=== PATIENT | female | born 1945 | race Hispanic/Latino ===

== ENCOUNTER 2019-09-25 15:06 | Emergency (ER) | payer MEDICARE ==
[~2019-09-25] VITALS: Ht 149.9 cm; Wt 59.9 kg
--- NOTE | 2019-09-25 15:36 | NUR ---
PATIENT TO ROOM 11
[2019-09-25] MEDS ORDERED: METHYLPREDNISOLONE SOD SUCC 125 MG/2ML VIAL IV STA (15:39)
[2019-09-25] MEDS ORDERED: DEXAMETHASONE SOD PHOS 10 MG/1 ML VIAL IV NR (15:45)
[2019-09-25] MEDS ORDERED: SODIUM CHLORIDE 0.9% 500ML 500 ML IV ONE (15:45)
[2019-09-25] MEDS ORDERED: DIPHENHYDRAMINE HCL INJ 50 MG/ML VIAL IV NR (15:45)
[2019-09-25] MEDS ORDERED: FAMOTIDINE 20 MG/2 ML VIAL IV NR (16:00)
--- NOTE | 2019-09-25 16:56 | NUR ---
RED RASH REMAINS, WELTS HAVE SUBSIDED.
== END 2019-09-25 16:56 | disposition home or self-care (01) ==
LOC: ER 15:06
DX: L50.9 Urticaria, unspecified (principal)
CPT/HCPCS: 99283; J1100; J1200; J2930; J7040

== ENCOUNTER 2020-04-21 13:27 | Emergency (ER) | payer MEDICARE ==
[~2020-04-21] VITALS: Ht 149.9 cm; Wt 59.9 kg
[2020-04-21] MEDS ORDERED: SODIUM CHLORIDE 0.9% 1000ML 1,000 ML IV STA (13:38)
[2020-04-21] MEDS ORDERED: MORPHINE SULFATE INJ 4 MG/ML INJ 1ML IV STA (13:38)
[2020-04-21] MEDS ORDERED: ONDANSETRON HCL INJ 2MG/ML 2ML 2 MG/ML VIAL IV STA (13:38)
--- NOTE | 2020-04-21 13:38 | Emergency Department Note ---
History of Present Illnes History of Present Illness Chief Complaint: Abdominal Complaints History of Present Illness This is a 74 year old female presents to the ED for acute onset of RUQ pain since this AM. Denies f/c/n/v. Seen by firer tunnel kiln this AM and sent to the ED for evaluation . Historian: Patient Arrival Mode: Car Past Medical/Family History Physician Review I have reviewed the patient's past medical and family history. Any updates have been documented here. Past Medical History Recent Fever: No Clinical Suspicion of Infectio: No New/Unexplained Change in Ment: No Past Medical History: Hypertension, Anxiety, Depression, Hyperlipedemia Other Medical History: RHEUMATORY ARTHRITIS. Past Surgical History: Hysterectomy, Knee Replacement, Lumpectomy Physical Exam Related Data Allergies: Coded Allergies: Ciprofloxacin (Verified Allergy, Severe, 02/26/11) Triage Vital Signs Vital Signs Date Time Temp Pulse Resp B/P (MAP) Pulse Ox O2 Delivery O2 Flow Rate FiO2 04/21/20 13:30 97.8 73 16 150/72 98 Physical Exam CONSTITUTIONAL HENT EYES NECK PULMONARY CARDIOVASCULAR GASTROINTESTINAL GENITOURINARY SKIN MUSCULOSKELETAL NEUROLOGICAL PSYCHOLOGICAL Results Laboratory Lab results reviewed: Yes Laboratory comments Laboratory Tests Test 04/21/20 13:40 White Blood Count 4.82 x10e3/uL (4.8-10.8) Red Blood Count 3.86 x10e6/uL (3.6-5.1) Hemoglobin 11.8 g/dL (12.0-16.0) Hematocrit 37.7 % (34.2-44.1) Mean Corpuscular Volume 97.7 fL (81-99) Mean Corpuscular Hemoglobin 30.6 pg (28-32) Mean Corpuscular Hemoglobin Concent 31.3 g/dL (31-35) Red Cell Distribution Width 14.3 % (11.7-14.4) Platelet Count 251 x10e3/uL (140-360) Neutrophils (%) (Auto) 54.0 % (38.7-80.0) Lymphocytes (%) (Auto) 30.9 % (18.0-39.1) Monocytes (%) (Auto) 12.0 % (4.4-11.3) Eosinophils (%) (Auto) 2.3 % (0.0-6.0) Basophils (%) (Auto) 0.6 % (0.0-1.0) Neutrophils # (Auto) 2.6 (2.1-6.9) Lymphocytes # (Auto) 1.5 (1.0-3.2) Monocytes # (Auto) 0.6 (0.2-0.8) Eosinophils # (Auto) 0.1 (0.0-0.4) Basophils # (Auto) 0.0 (0.0-0.1) Absolute Immature Granulocyte (auto 0.01 x10e3/uL (0-0.1) Urine Color Yellow (YELLOW) Urine Clarity Sl cloudy (CLEAR) Urine pH 7 (5 - 7) Urine Specific Banner 1.020 (1.010-1.025) Urine Protein Negative (NEGATIVE) Urine Glucose (UA) Negative (NEGATIVE) Urine Ketones Negative (NEGATIVE) Urine Blood Negative (NEGATIVE) Urine Nitrite Positive (NEGATIVE) Urine Bilirubin Negative (NEGATIVE) Urine Urobilinogen 0.2 mg/dL (0.2 - 1) Urine Leukocyte Esterase Moderate (NEGATIVE) Urine RBC None /HPF (0-5) Urine WBC 11-20 /HPF (0-5) Urine Epithelial Cells Few /LPF (NONE) Urine Renal Epithelial Cells Rare (NONE) Urine Amorphous Sediment Few (FEW) Urine Bacteria Many /HPF (NONE) Sodium Level 140 mmol/L (136-145) Potassium Level 4.1 mmol/L (3.5-5.1) Chloride Level 106 mmol/L (98-107) Carbon Dioxide Level 23 mmol/L (22-29) Anion Gap 15.1 mmol/L (8-16) Blood Urea Nitrogen 11 mg/dL (7-26) Creatinine 0.98 mg/dL (0.57-1.11) Estimat Glomerular Filtration Rate 55 ML/MIN (60-) BUN/Creatinine Ratio 11 (6-25) Glucose Level 87 mg/dL (74-118) Calcium Level 9.7 mg/dL (8.4-10.2) Total Bilirubin 0.4 mg/dL (0.2-1.2) Aspartate Amino Transf (AST/SGOT) 22 IU/L (5-34) Alanine Aminotransferase (ALT/SGPT) 9 IU/L (0-55) Alkaline Phosphatase 59 IU/L (40-150) Creatine Kinase 56 IU/L (29-168) Creatine Kinase MB 1.20 ng/mL (0-5.0) Troponin I 0.034 ng/mL (0-0.300) B-Type Natriuretic Peptide 16.1 pg/mL (0-100) Total Protein 7.6 g/dL (6.5-8.1) Albumin 3.8 g/dL (3.5-5.0) Globulin 3.8 g/dL (2.3-3.5) Albumin/Globulin Ratio 1.0 (0.8-2.0) Lipase 14 U/L (8-78) Imaging Imaging results reviewed: Yes Impressions [place] [id number] Patient Name: LASHA GUERRERO MR #: [id number] : 1945 Age/Sex: 74/F Req #: [id number] Adm Physician: Ordered by: ADAMA CHAUDHRY DO Report #: [id number] Location: ER Room/Bed: Procedure: [id number] CT/CT ABDOMEN/PELVIS W Exam Date: 04/21/20 Exam Time: 1450 REPORT STATUS: Signed EXAM: CT Abdomen and Pelvis WITH intravenous contrast INDICATION: Abdominal pain COMPARISON: None. TECHNIQUE: Abdomen and pelvis were scanned utilizing a multidetector helical scanner from the lung base to the pubic symphysis after administration of IV contrast. Coronal and sagittal reformations were obtained. Routine protocol was performed. Scan was performed during portal venous phase. IV CONTRAST: 100mL of Isovue 370 ORAL CONTRAST: Water RADIATION DOSE: Total DLP: 338 mGy*cm Dose modulation, iterative reconstruction, and/or weight based adjustment of the mA/kV was utilized to reduce the radiation dose to as low as reasonably achievable. FINDINGS: LOWER THORAX: Bibasilar dependent subsegmental atelectasis. HEPATOBILIARY: Diffuse hepatic steatosis. No focal liver lesion. No biliary ductal dilation. Status post cholecystectomy. SPLEEN: No splenomegaly. PANCREAS: No focal masses or ductal dilatation. ADRENALS: No adrenal nodules. KIDNEYS/URETERS: No hydronephrosis or renal calculi. Right lower pole 1 cm renal cyst. PELVIC ORGANS/BLADDER: Unremarkable. PERITONEUM / RETROPERITONEUM: No free air or fluid. LYMPH NODES: No lymphadenopathy. VESSELS: Scattered athetotic calcifications of the nonaneurysmal abdominal aorta and major branches. GI TRACT: Diverticulosis without CT evidence of diverticulitis. No abnormal bowel thickening. No bowel obstruction. Normal appendix. BONES AND SOFT TISSUES: No acute osseous injury. No suspicious lytic or blastic lesions. IMPRESSION: No acute findings in the abdomen or pelvis. Diffuse hepatic steatosis. Diverticulosis without CT evidence of diverticulitis. Signed by: Rigo Sloan MD on 04/21/2020 3:53 PM Dictated By: RIGO SLOAN MD 52 Transcribed By: STEPHNE on 04/21/201552 COPY TO: ADAMA CHAUDHRY DO~ Procedures 12 Lead ECG Interpretation ECG Interpretation : ECG: ECG 1 Custom Motorcycle Painter: Interpreted by ED physician Date: Apr 21, 2020 Time: 13:37 Prior ECG tracings: reviewed Rhythm: sinus rhythm Rate: normal BPM: 70 QRS axis: normal ST segments normal: Yes T waves normal: No T waves flattening: V1, V2, V3, V4, V5 Clinical Impression: non-specific ECG Assessment & Plan Medical Decision Making MDM 74 yof with RUQ Pain. [address] and labs ordered to rule out appendicitis, biliary pathology and perforation. Labs and CT reviewed with patient, plan to discharge to home Assessment & Plan Final Impression: (1) Right sided abdominal pain Depart Disposition: HOME, SELF-CARE Last Vital Signs Date Time Temp Pulse Resp B/P (MAP) Pulse Ox O2 Delivery O2 Flow Rate FiO2 04/21/20 13:30 97.8 73 16 150/72 98 Medications in the ED Sodium Chloride 1,000 ml @ 0 mls/hr Q0M STAT IV Last administered on 04/21/20at 13:59; Admin Dose 1,000 MLS/HR; Start 04/21/20 at 13:38; Stop 04/21/20 at 13:40; Status DC Morphine Sulfate 4 mg ONCE STAT IV Last administered on 6/12/20at 13:59; Admin Dose 4 MG; Start 04/21/20 at 13:38; Stop 04/21/20 at 13:42; Status DC Ondansetron HCl 4 mg ONCE STAT IV Last administered on 04/21/20at 14:00; Admin Dose 4 MG; Start 04/21/20 at 13:38; Stop 04/21/20 at 13:42; Status DC ADAMA CHAUDHRY DO Apr 21, 2020 13:38
--- OUTSIDE RECORDS SUMMARY | 2020-04-21 13:41 | XMS REPORT | Continuity of Care Document ---
Author Author PutneyLASHA Putney Address Unknown Phone Unavailable Care Team Providers Care Nuclear Waste Process Operator Name Role Phone [facility] Information Exchange Unavailable Un available Problems Problem Status Onset Date Classification Date Reported Comments Source Age related osteoporosis Active Problem 04/18/2020 King Jimenez 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 Active Problem 04/18/2020 King Jimenez Vitamin D deficiency, unspecified Active Problem 07/2020 King Jimenez Other dampener operator (current) drug therapy Active Problem 07/2020 King Jimenez Other rheumatoid arthritis with rheumato id factor of multiple sites Active Prob kade 04/18/2020 King Jimenez Other abnormality of red blood cells Active Diagnosis 0 05/21/2019 King Jimenez Depression Active Problem 04/18/2020 King Jimenez Tuberculosis screening Active Diagnosis 03/28/2020 King Jimenez Encounter for testing for latent tuberculosis infectio n Active Diagnosis 03/28/2020 King Jimenez Screening for tuberculosis Act sumi Diagnosis 0 03/25/2020 King Jimenez Encounter for screening for other infect ious and parasitic diseases Active Diag nosis 03/25/2020 King Jimenez Encounter for screening for other viral diseases Active Diagnosis 03/25/2020 King Jimenez Encounter for screening for other bacterial diseases Active Diagnosis 03/25/2020 King Jimenez Medications Medication Details Route Status Patient Instructions Ordering Provider Order Date Source Enbrel Mini 1 ml Subcutaneous Active 50 MG/ML Subcutaneous o nce a week Jimenez 03/22/2020 King Jimenez Prednisone Taper 3 tablets for 5 days, 2 tablets for 5 days and then 1 tablet for 5 days orally Active 5mg orally as directed Richardson 03/21/2020 King Jimenez Sulfasalazine 2 tabs Orally Active 500 MG Orally BID Richardson 12/22/2019 King Jimenez Prednisone Taper 3 tablets for 5 days, 2 tablets for 5 days and then 1 tablet for 5 days orally Active 5mg orally as directed Richardson 12/22/2019 King Jimenez Boniva 1 tablet Orally Active 150 MG Orally Richardson 09/21/2019 King Jimenez Tylenol#3 1 tablet Orally Active 300-30 MG Orally BID [facility] 09/21/2019 King Jimenez Prednisone Taper 3 tablets for 5 days, 2 tablets for 5 days and then 1 tablet for 5 days NA Active 5mg Y ousaf 05/18/2019 King Jimenez Prolia as directed Subcutaneous Active 60 MG/ML Subcutaneous q 6 months [place] 03/31/2019 King Jimenez Prolia as directed Subcutaneous Active 60 MG/ML Subcutaneous q 6 months [place] 09/07/2018 King Jimenez Alendronate Sodium 1 tablet Orally Active 70 MG Orally once a week [place] 09/07/2018 King Jimenez Prolia as directed Subcutaneous Active 60 MG/ML Subcutaneous q 6 months [place] 02/03/2018 King Jimenez Folic Acid 1 tablet Orally Active 4 MG Orally Once a day [place] 02/03/2018 King Jimenez Omeprazole 1 capsule Orally Active 40 MG Orally Once a day [facility] Lino Jimenez Citalopram Hydrobromide 1 tabl et Orally Active 20 MG Orally Once a day [facility] King Jimenez Sulfasalazine 1 tablet Orally Active 500 MG Orally bid [facility] Lino Jimenez Meloxicam 1 tablet Orally Active 7.5 MG Orally Once a da y [facility] Lino Jimenez Vitamin D not defined Orally Active 2000 UNIT Orally once a day [facility] King Jimenez Alendronate Sodium 1 tablet Orally Active 70 MG Orally [place] King Jimenez Anoro Ellipta 1 puff Inhalation Active 62.5-25 MCG/INH Inhalat ion Once a day [place] King Jimenez Fenofibrate 1 tablet with a me al Orally Active 54 MG Orally Once a day [facility] King Jimenez Lisinopril 1 tablet Orally Active 20 MG Orally Once a day [facility] Lino Jimenez Citalopram Hydrobromide 1 tabl et Orally Active 20 mg Orally Once a day [facility] King Jimenez Vitamin B12 1 tablet Orally Active 1000 MCG Orally Once a day [facility] King Jimenez Omeprazole 1 capsule Orally Active 40 MG Orally Once a day PRN Richardsonpetra Jimenez Allergies, Adverse Reactions, Alerts Substance Category Reaction Severity Reaction type Status Date Reported Comments Source Naproxen Adverse Reaction stomach upset Adverse Reaction Active 03/21/2020 King Jimenez MTX Adverse Reaction raised lft Adverse Reaction Active 03/21/2020 King Jimenez cipro Adverse Reaction rash Adverse Reaction Active 03/21/2020 King Jimenez hcq Adverse Reaction eye prob Adverse Reaction Active 03/21/2020 King Jimenez Immunizations No Data Provided for This Section Results No Data Provided for This Section Pathology Reports No Data Provided for This Section Diagnostic Reports No Data Provided for This Section Consultation Notes No Data Provided for This Section Discharge Summaries No Data Provided for This Section History and Physicals No Data Provided for This Section Vital Signs Vital Sign Value Date Comments Source Weight 131.9 12/22/2019 King Jimenez Height 58 0 12/22/2019 King Jimenez Temperature Oral (F) 97.9 F 12/22/2019 King Jimenez Heart Rate 66 12/22/2019 King Jimenez Diastolic (mm Hg) 80 12/22/2019 King Jimenez Systolic (mm Hg) 130 12/22/2019 King Jimenez Weight 132.7 09/21/2019 King Jimenez Height 58 1 11/21/2018 King Jimenez Temperature Oral (F) 97.1 F 09/21/2019 King Jimenez Heart Rate 68 09/21/2019 King Jimenez Diastolic (mm Hg) 70 09/21/2019 King Jimenez Systolic (mm Hg) 140 09/21/2019 King Jimenez Weight 134.5 05/18/2019 King Jimenez Height 58 0 05/18/2019 King Jimenez Temperature Oral (F) 98.9 F 05/18/2019 King Jimenez Heart Rate 72 05/18/2019 King Jimenez Diastolic (mm Hg) 68 05/18/2019 King Jimenez Systolic (mm Hg) 108 05/18/2019 King Jimenez Weight 127.2 09/07/2018 King Jimenez Height 58 1 King Jimenez Temperature Oral (F) 97.2 F 09/07/2018 King Jimenez Heart Rate 70 09/07/2018 King Jimenez Diastolic (mm Hg) 72 09/07/2018 King Jimenez Systolic (mm Hg) 106 09/07/2018 King Jimenez Weight 134 02/03/2018 King Jimenez Height 58 0 02/03/2018 King Jimenez Temperature Oral (F) 96.7 F 02/03/2018 King Jimenez Heart Rate 68 02/03/2018 Kingsavita Jimenez Diastolic (mm Hg) 70 02/03/2018 King Jimenez Systolic (mm Hg) 122 02/03/2018 King Jimenez Encounters No Data Provided for This Section Procedures No Data Provided for This Section Assessment and Plan No Data Provided for This Section Plan of Care No Data Provided for This Section Social History No Data Provided for This Section Family History No Data Provided for This Section Advance Directives No Data Provided for This Section Functional Status No Data Provided for This Section
--- OUTSIDE RECORDS SUMMARY | 2020-04-21 13:42 | XMS REPORT ---
Author LASHA Horvath Organization [employer] Address Unknown Phone Unavailable Care Team Providers Care Metal Dresser Name Role Phone Roscoe Jimenez CP Unavailable Allergies No Known Allergies Problems Problem Type Condition Code Onset Dates Condition Statu s Problem Vitamin D deficiency, unspecified E55.9 Active Problem Age related osteoporosis M81.0 Act sumi Problem Depression F32.9 Active Problem Other rheumatoid arthritis with rheumato id factor of multiple sites M05.89 Active Problem Rheumatoid arthritis with rh eumatoid factor of multiple sites without organ or systems involvement M05.79 Active Problem Other snf (current) drug therapy Z79.899 Active Medications No Known Medications Results No Known Results Summary Purpose [employer] Submission
--- OUTSIDE RECORDS SUMMARY | 2020-04-21 13:42 | XMS REPORT ---
Author Author LASHA Jimenez Organization [employer] Address Unknown Phone Unavailable Care Team Providers Care M1 Armor Crewman Name Role Phone Roscoe Jimenez CP Unavailable Allergies No Known Allergies Problems Problem Type Condition Code Onset Dates Condition Statu s Problem Age related osteoporosis M81.0 Act sumi Problem Rheumatoid arthritis with rh eumatoid factor of multiple sites without organ or systems involvement M05.79 Active Problem Vitamin D deficiency, unspecified E55.9 Active Assessment Age related osteoporosis M81.0 Act sumi Problem Other termite control representative (current) drug therapy Z79.899 Active Problem Other rheumatoid arthritis with rheumato id factor of multiple sites M05.89 Active Medications Medication Code System Code Instructions Start Date End Date Status Dosage Prolia [facility] 85801816908 60 MG/ML Subcutaneous q 6 months Sep 07 8 Active as directed Results No Known Results Summary Purpose [employer] Submission
--- OUTSIDE RECORDS SUMMARY | 2020-04-21 13:42 | XMS REPORT ---
Author Author LASHA Jimenez Organization [employer] Address Unknown Phone Unavailable Care Team Providers Care Ice Grinder Name Role Phone Roscoe Jimenez CP Unavailable Allergies No Known Allergies Problems Problem Type Condition Code Onset Dates Condition Statu s Assessment Tuberculosis screening Z11.1 Activ e Assessment Encounter for testing for latent tuberculosis infectio n Z11.7 Active Problem Vitamin D deficiency, unspecified E55.9 Active Problem Age related osteoporosis M81.0 Act sumi Problem Depression F32.9 Active Problem Other rheumatoid arthritis with rheumato id factor of multiple sites M05.89 Active Problem Rheumatoid arthritis with rh eumatoid factor of multiple sites without organ or systems involvement M05.79 Active Problem Other retirement (current) drug therapy Z79.899 Active Medications No Known Medications Results No Known Results Summary Purpose [employer] Submission
--- OUTSIDE RECORDS SUMMARY | 2020-04-21 13:42 | XMS REPORT ---
Author RealLASHA [facility] [employer] Address Unknown Phone Unavailable Care Team Providers Care Statistical Reporting Analyst Name Role Phone Real Tammie Unavailable Allergies, Adverse Reactions, Alerts Substance Reaction Event Type Naproxen stomach upset Drug Allergy MTX raised lft Non Drug Allergy hcq eye prob Non Drug Allergy cipro rash Non Drug Allergy Problems Problem Type Condition Code Onset Dates Condition Statu s Assessment Age related osteoporosis M81.0 Act sumi Assessment Rheumatoid arthritis with rh eumatoid factor of multiple sites without organ or systems involvement M05.79 Active Assessment Other emt intermediate (current) drug therapy Z79.899 Active Assessment Vitamin D deficiency, unspecified E55.9 Active Problem Age related osteoporosis M81.0 Act sumi Problem Rheumatoid arthritis with rh eumatoid factor of multiple sites without organ or systems involvement M05.79 Active Problem Vitamin D deficiency, unspecified E55.9 Active Assessment Other rheumatoid arthritis with rheumato id factor of multiple sites M05.89 Active Problem Other emt intermediate (current) drug therapy Z79.899 Active Problem Other rheumatoid arthritis with rheumato id factor of multiple sites M05.89 Active Medications Medication Code System Code Instructions Start Date End Date Status Dosage Boniva [facility] 00337951184 150 MG Orally Sep 21, 2019 Active 1 tablet Tylenol#3 NDC 0 300-30 MG Orally BID Sep 21, 2019 Dec 20, 2019 Active 1 tablet Omeprazole ND 95643439023 40 MG Orally Once a day A ctive [address] [facility] 99423095939 7.5 MG Orally Once a day A ctive 1 tablet Citalopram Hydrobromide ND 92411305203 20 MG Orally Once a day Active 1 tablet Sulfasalazine ND 41652011062 500 MG Orally bid Acti ve 1 tablet Fenofibrate ND 87655301350 54 MG Orally Once a day Active 1 tablet with a meal Lisinopril ND 80488122844 20 MG Orally Once a day A ctive 1 tablet Vitamin B12 [facility] 60449795044 1000 MCG Orally Once a day Active 1 tablet Vitamin D [facility] 64995295300 2000 UNIT Orally once a day Active not defined Vital Signs Date/Time: Sep 21, 2019 BMI 27.73 Index Weight 132.7 lbs Height 58 in Temperature 97.1 F Cardiac Monitoring Heart Rate 68 /min Blood Pressure Diastolic 70 mm Hg Blood Pressure Systolic 140 mm Hg Results No Known Results Summary Purpose [employer] Submission
--- OUTSIDE RECORDS SUMMARY | 2020-04-21 13:42 | XMS REPORT | Continuity of Care Document ---
Author Author [facility] t Organization [facility] Address [address] [place] [address] Phone Unavailable Care Team Providers Care Biomedical Service Engineer Name Role Phone EMELYN MCKEON MD PCP Payers Payer Name Policy Type Policy Number Effective Date Expiration Date Rodney Gardiner (Plan term eff Nov 2012) [id number] [facility] Problems Condition Name Condition Details Condition Category Status Onset Date Resolution Date Last Treatment Date Treating Clinician Comments Source Age related osteoporosis Age related osteoporosis Active Problem 04/18/2020 King Jimenez Problem Active 2020-04-18 02 :45:52 Ganesh Moreau 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 Rheumatoid arthr itis with rheumatoid factor of multiple sites without organ or systems involvement Active Problem 04/18/2020 King Jimenez Problem Active 2020-04-18 02:45:52 Ganesh Moreau Vitamin D deficiency, unspecified Vitamin D deficiency, unspecified Active Problem 04/18/2020 King Jimenez Problem Active 2020-04-18 02:45:52 Ganesh Moreau Other penitentiary (current) drug therapy Other intermediate school teacher (current) drug therapy Active Problem 04/18/2020 King Jimenez Problem Ac tive 2020-04-18 02:45:52 Ganesh montanez Other rheumatoid arthritis with rheumatoid factor of m ultiple sites Other rheumatoid arthritis with rheumatoid factor of multiple sites Active Problem 04/18/2020 King Jimenez Problem Active 2020-04-18 02:45:52 Ganesh Moreau 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 Diagnosis 05/21/2019 King Jimenez Diagnosis Acti ve 2019-05-21 02:45:57 Ganesh montanez Depression Depr ession Active Problem 04/18/2020 King Jimenez Problem Active 2020-04-18 02:45:52 Ganesh Moreau Tuberculosis screening Tube rculosis screening Active Diagnosis 03/28/2020 King Jimenez Diagnosis Active 2020-03-28 02:47:09 [facility] Encounter for testing for latent tuberculosis infectio n Encounter for testing for latent tuberculosis infection Active Diagnosis 03/28/2020 King Jimenez Diagnosis Active 2020-03-28 02:47:09 [facility] Encounter for screening for other infectious and toshia itic diseases Encounter for screening for other infectious and parasitic diseases Active Diagnosis 03/25/2020 King Jimenez Diagnosis Active 2020-03-25 02:46:[facility] Encounter for screening for other viral diseases Encounter for screening for other viral diseases Active Diagnosis 03/25/2020 King Jimenez Diagnosis Active 2020-03-25 02:46:27 [facility] Encounter for screening for other bacterial diseases Encounter for screening for other bacterial diseases Active Diagnosis 03/25/2020 King Jimenez Diagnosis Active 2020-03-25 02:46:27 [facility] Allergies, Adverse Reactions, Alerts Allergy Name Allergy Type Status Severity Reaction(s) Onset Date Inacti ve Date Treating Clinician Comments Source Naproxen Naproxen Active stomach upset 2020-03-21 00:00:00 [facility] hcq hcq Active eye prob 2020-03-21 00:00:00 [facility] Ciprofloxacin Allergy to Substance Active Severe 2011-02-26 00:00: 00 [facility] Medications Ordered Medication Name Filled Medication Name Start Date Stop Da te Current Medication? Ordering Clinician Indication Dosage Frequency Signature (SIG) Comments Components Source Vitamin D 2020-03-25 02:46:27 Yes Francis Richardson no t defined [facility] Fenofibrate 2020-03-25 02:46:27 Yes Francis Richardson 1 tablet with a meal [facility] Lisinopril 2020-03-25 02:46:27 Yes Francis Richardson 1 tablet [facility] Citalopram Hydrobromide 2020-03-25 02:46:27 Yes Francis Richardson 1 tablet [facility] Vitamin B12 2020-03-25 02:46:27 Yes Francis Richardson 1 tablet [facility] Omeprazole 2020-03-25 02:46:27 Yes Francis Richardson 1 capsule [facility] Enbrel Mini 2020-03-22 00:00:00 Yes Roscoe Jimenez 1 ml [facility] Prednisone Taper 2020-03-21 00:00:00 Yes Francis Richardson 3 tablets for 5 days, 2 tablets for 5 days and then 1 tablet for 5 days [facility] Omeprazole 2019-12-25 03:46:07 Yes Francis Richardson 1 capsule [facility] Sulfasalazine 2019-12-25 03:46:07 Yes Francis Richardson 1 tablet [facility] Meloxicam 2019-12-25 03:46:07 Yes Francis Richardson 1 tablet [facility] Citalopram Hydrobromide 2019-12-22 03:45:51 Yes Tammie Horn 1 tablet [facility] Sulfasalazine 2019-12-22 00:00:00 Yes Francis Richardson 2 tabs [facility] Prednisone Taper 2019-12-22 00:00:00 Yes Francis Richardson 3 tablets for 5 days, 2 tablets for 5 days and then 1 tablet for 5 days [facility] Boniva 2019-09-21 00:00:00 Yes Francis Richardson 1 tab let [facility] Tylenol#3 2019-09-21 00:00:00 Yes Tammie Horn 1 ta blet [facility] Prednisone Taper 2019-05-18 00:00:00 Yes Wajeeha Kemar 3 tablets for 5 days, 2 tablets for 5 days and then 1 tablet for 5 days [facility] Prolia 2019-03-31 00:00:00 Yes Roscoe Jimenez as d irected [facility] Anoro Ellipta 2018-09-11 02:48:42 Yes Wajeeha Kemar 1 puff [facility] Prolia 2018-09-07 00:00:00 Yes Roscoe Jimenez as d irected [facility] Alendronate Sodium 2018-09-07 00:00:00 Yes Wajeeha Kemar 1 tablet [facility] Alendronate Sodium 2018-02-05 02:47:53 Yes Wajeeha Kemar 1 tablet [facility] Prolia 2018-02-03 00:00:00 Yes Roscoe Jimenez as d irected [facility] Folic Acid 2018-02-03 00:00:00 Yes Wajeeha Kemar 1 tablet [facility] Vital Signs Vital Name Observation Time Observation Value Comments Source Weight 2019-12-22 16:00:00 [facility] Height 2019-12-22 16:00:00 [facility] Temperature Oral (F) 2019-12-22 16:00:00 97.9 F [facility] Heart Rate 2019-12-22 16:00:00 [facility] Diastolic (mm Hg) 2019-12-22 16:00:00 [facility] Systolic (mm Hg) 2019-12-22 16:00:00 [facility] Weight 2019-09-21 17:15:00 [facility] Height 2019-09-21 17:15:00 [facility] Temperature Oral (F) 2019-09-21 17:15:00 97.1 F [facility] Heart Rate 2019-09-21 17:15:00 [facility] Diastolic (mm Hg) 2019-09-21 17:15:00 [facility] Systolic (mm Hg) 2019-09-21 17:15:00 [facility] Weight 2019-05-18 16:00:00 [facility] Height 2019-05-18 16:00:00 [facility] Temperature Oral (F) 2019-05-18 16:00:00 98.9 F [facility] Heart Rate 2019-05-18 16:00:00 [facility] Diastolic (mm Hg) 2019-05-18 16:00:00 [facility] Systolic (mm Hg) 2019-05-18 16:00:00 [facility] Weight 2018-09-07 16:15:00 [facility] Height 2018-09-07 16:15:00 [facility] Temperature Oral (F) 2018-09-07 16:15:00 97.2 F [facility] Heart Rate 2018-09-07 16:15:00 [facility] Diastolic (mm Hg) 2018-09-07 16:15:00 [facility] Systolic (mm Hg) 2018-09-07 16:15:00 [facility] Weight 2018-02-03 13:45:00 [facility] Height 2018-02-03 13:45:00 [facility] Temperature Oral (F) 2018-02-03 13:45:00 96.7 F [facility] Heart Rate 2018-02-03 13:45:00 [facility] Diastolic (mm Hg) 2018-02-03 13:45:00 [facility] Systolic (mm Hg) 2018-02-03 13:45:00 [facility] Procedures This patient has no known procedures. Encounters Start Date/Time End Date/Time Encounter Type Admission Type [facility] Care Department Encounter ID Source 2020-04-13 14:52:00 2020-04-13 14:52:00 Outpatient Roscoe SWEENEY [id number] King Jimenez MD 2020-03-27 15:54:00 2020-03-27 15:54:00 Outpatient Roscoe Jimenez MD [place] [id number] King Jimenez MD 2020-03-22 12:30:00 2020-03-22 12:30:00 Outpatient Roscoe Jimenez MD PA [id number] King Jimenez MD 2020-03-21 10:00:00 2020-03-21 10:00:00 Outpatient Roscoe Jimenez MD PA [id number] King Jimenez MD 2019-12-22 10:00:00 2019-12-22 10:00:00 Outpatient Roscoe Jimenez MD PA [id number] King Jimenez MD 2019-12-06 13:53:00 2019-12-06 13:53:00 Outpatient MD PATEL Holloway MD [place] [id number] King Jimenez MD 2019-09-25 15:06:00 2019-09-25 16:56:00 Departed Emergency Room [facility] [id number] [facility] 2019-09-21 11:15:00 2019-09-21 11:15:00 Outpatient Roscoe Jimenez MD PA [id number] MARY Jimenez MD 2019-05-20 14:27:00 2019-05-20 14:27:00 Outpatient Roscoe SWEENEY [id number] MARY Jimenez MD 2019-05-18 11:00:00 2019-05-18 11:00:00 Outpatient Roscoe Jimenez MD PA [id number] MARY Jimenez MD 2019-04-26 12:55:00 2019-04-26 12:55:00 Outpatient Roscoe Jimenez MD PA [id number] King Jimenez MD 2019-04-01 08:20:00 2019-04-01 08:20:00 Outpatient Roscoe SWEENEY [id number] King Jimenez MD 2019-03-31 13:01:00 2019-03-31 13:01:00 Outpatient Roscoe SWEENEY [id number] King Jimenez MD 2019-03-19 08:28:00 2019-03-19 08:28:00 Outpatient Roscoe SWEENEY [id number] King Jimenez MD 2018-10-14 13:48:00 2018-10-14 13:48:00 Outpatient Roscoe Jimenez MD PA [id number] King Jimenez MD 2018-10-13 16:04:00 2018-10-13 16:04:00 Outpatient Roscoe Jimenez MD PA [id number] King Jimenez MD 2018-10-05 14:54:00 2018-10-05 14:54:00 Outpatient Roscoe SWEENEY [id number] King Jimenez MD 2018-09-07 11:15:00 2018-09-07 11:15:00 Outpatient Roscoe SWEENEY [id number] King Jimenez MD 2018-09-07 10:39:00 2018-09-07 10:39:00 Outpatient Roscoe SWEENEY [id number] King Jimenez MD 2018-08-06 10:43:00 2018-08-06 10:43:00 Outpatient Roscoe SWEENEY [id number] King Jimenez MD 2018-02-05 10:19:00 2018-02-05 10:19:00 Outpatient Roscoe SWEENEY [id number] King Jimenez MD 2018-02-03 10:01:00 2018-02-03 10:01:00 Outpatient Roscoe Jimenez MD [place] [id number] King Jimenez MD 2018-02-03 08:45:00 2018-02-03 08:45:00 Outpatient Roscoe Jimenez MD [place] [id number] King Jimenez MD Results This patient has no known results.
--- OUTSIDE RECORDS SUMMARY | 2020-04-21 13:42 | XMS REPORT ---
Author Author LASHA Jimenez Organization [employer] Address Unknown Phone Unavailable Care Team Providers Care Hr Recruiter Name Role Phone Roscoe Jimenez CP Unavailable Allergies No Known Allergies Problems Problem Type Condition Code Onset Dates Condition Statu s Problem Age related osteoporosis M81.0 Act sumi Problem Rheumatoid arthritis with rh eumatoid factor of multiple sites without organ or systems involvement M05.79 Active Problem Vitamin D deficiency, unspecified E55.9 Active Problem Other snf (current) drug therapy Z79.899 Active Problem Other rheumatoid arthritis with rheumato id factor of multiple sites M05.89 Active Medications No Known Medications Results No Known Results Summary Purpose [employer] Submission
--- OUTSIDE RECORDS SUMMARY | 2020-04-21 13:42 | XMS REPORT ---
Author Author LASHA Jimenez Organization [employer] Address Unknown Phone Unavailable Care Team Providers Care Environmental Planning Engineer Name Role Phone Roscoe Jimenez CP Unavailable Allergies No Known Allergies Problems Problem Type Condition Code Onset Dates Condition Statu s Problem Age related osteoporosis M81.0 Act sumi Problem Rheumatoid arthritis with rh eumatoid factor of multiple sites without organ or systems involvement M05.79 Active Problem Vitamin D deficiency, unspecified E55.9 Active Problem Other m[facility] (current) drug therapy Z79.899 Active Problem Other rheumatoid arthritis with rheumato id factor of multiple sites M05.89 Active Medications No Known Medications Results No Known Results Summary Purpose [employer] Submission
--- OUTSIDE RECORDS SUMMARY | 2020-04-21 13:42 | XMS REPORT ---
Author Author LSAHA Jimenez Organization [employer] Address Unknown Phone Unavailable Care Team Providers Care Yarn Hauler Name Role Phone Roscoe Jimenez CP Unavailable Allergies No Known Allergies Problems Problem Type Condition Code Onset Dates Condition Statu s Problem Age related osteoporosis M81.0 Act sumi Problem Rheumatoid arthritis with rh eumatoid factor of multiple sites without organ or systems involvement M05.79 Active Problem Vitamin D deficiency, unspecified E55.9 Active Problem Other retirement (current) drug therapy Z79.899 Active Problem Other rheumatoid arthritis with rheumato id factor of multiple sites M05.89 Active Medications No Known Medications Results No Known Results Summary Purpose [employer] Submission
--- OUTSIDE RECORDS SUMMARY | 2020-04-21 13:42 | XMS REPORT ---
Author Author LASHA Richardson Organization [employer] Address Unknown Phone Unavailable Care Team Providers Care Cotton Candy Maker Name Role Phone Francis Richardson Unavailable Allergies, Adverse Reactions, Alerts Substance Reaction Event Type Naproxen stomach upset Drug Allergy MTX raised lft Non Drug Allergy hcq eye prob Non Drug Allergy cipro rash Non Drug Allergy Problems Problem Type Condition Code Onset Dates Condition Statu s Assessment Depression F32.9 Active Assessment Other rheumatoid arthritis with rheumato id factor of multiple sites M05.89 Active Assessment Other roasterman (current) drug therapy Z79.899 Active Assessment Vitamin D deficiency, unspecified E55.9 Active Problem Vitamin D deficiency, unspecified E55.9 Active Problem Age related osteoporosis M81.0 Act sumi Problem Depression F32.9 Active Problem Other rheumatoid arthritis with rheumato id factor of multiple sites M05.89 Active Problem Rheumatoid arthritis with rh eumatoid factor of multiple sites without organ or systems involvement M05.79 Active Problem Other roasterman (current) drug therapy Z79.899 Active Medications Medication Code System Code Instructions Start Date End Date Status Dosage Citalopram Hydrobromide ND 04671186798 20 mg Orally Once a day Active 1 tablet Lisinopril ND 39723547270 20 MG Orally Once a day A ctive 1 tablet Meloxicam ND 06822403521 7.5 MG Orally Once a day A ctive 1 tablet Boniva ND 51171963767 150 MG Orally Sep 21, 2019 Active 1 tablet Vitamin D ND 08688362227 2000 UNIT Orally once a day Active not defined Fenofibrate ND 63035396793 54 MG Orally Once a day Active 1 tablet with a meal Vitamin B12 ND 06961583412 1000 MCG Orally Once a day Active 1 tablet Sulfasalazine ND 68228159357 500 MG Orally bid Acti ve 1 tablet Sulfasalazine ND 90873257652 500 MG Orally BID Dec 22, 2019 Active 2 tabs Prednisone Taper ND 06741810255 5mg orally as directed DecJan 06, 2020 Active 3 tablets for 5 days, 2 tabl ets for 5 days and then 1 tablet for 5 days Omeprazole [facility] 55475871227 40 MG Orally Once a day A ctive 1 capsule Vital Signs Date/Time: Dec 22, 2019 BMI 27.56 Index Weight 131.9 lbs Height 58 in Temperature 97.9 F Cardiac Monitoring Heart Rate 66 /min Blood Pressure Diastolic 80 mm Hg Blood Pressure Systolic 130 mm Hg Results No Known Results Summary Purpose [employer] Submission
--- OUTSIDE RECORDS SUMMARY | 2020-04-21 13:42 | XMS REPORT ---
Author Author LASHA Jimenez Organization [employer] Address Unknown Phone Unavailable Care Team Providers Care [place] Police Lieutenant Name Role Phone Roscoe Jimenez CP Unavailable Allergies No Known Allergies Problems Problem Type Condition Code Onset Dates Condition Statu s Problem Age related osteoporosis M81.0 Act sumi Problem Rheumatoid arthritis with rh eumatoid factor of multiple sites without organ or systems involvement M05.79 Active Problem Vitamin D deficiency, unspecified E55.9 Active Problem Other clinical applications manager (current) drug therapy Z79.899 Active Problem Other rheumatoid arthritis with rheumato id factor of multiple sites M05.89 Active Medications Medication Code System Code Instructions Start Date End Date Status Dosage Prolia [facility] 84947456933 60 MG/ML Subcutaneous q 6 months February 03, 018 Active as directed Results No Known Results Summary Purpose [employer] Submission
--- OUTSIDE RECORDS SUMMARY | 2020-04-21 13:42 | XMS REPORT ---
Author LASHA Blevins [facility] [employer] Address Unknown Phone Unavailable Care Team Providers Care Biologics Specialist Name Role Phone Cynthia Reinoso Unavailable Allergies, Adverse Reactions, Alerts Substance Reaction Event Type Naproxen stomach upset Drug Allergy MTX raised lft Non Drug Allergy hcq eye prob Non Drug Allergy cipro rash Non Drug Allergy Problems Problem Type Condition Code Onset Dates Condition Statu s Assessment Other meterman (current) drug therapy Z79.899 Active Assessment Age related osteoporosis M81.0 Act sumi Problem Age related osteoporosis M81.0 Act sumi Problem Rheumatoid arthritis with rh eumatoid factor of multiple sites without organ or systems involvement M05.79 Active Problem Vitamin D deficiency, unspecified E55.9 Active Assessment Rheumatoid arthritis with rh eumatoid factor of multiple sites without organ or systems involvement M05.79 Active Problem Other custodial (current) drug therapy Z79.899 Active Problem Other rheumatoid arthritis with rheumato id factor of multiple sites M05.89 Active Medications Medication Code System Code Instructions Start Date End Date Status Dosage Lisinopril ND 18152353854 20 MG Orally Once a day A ctive 1 tablet Sulfasalazine ND 68727006151 500 MG Orally bid Acti ve 1 tablet Prolia [facility] 58227010123 60 MG/ML Subcutaneous q 6 months March 31 9 Inactive as directed Citalopram Hydrobromide ND 18153232957 20 MG Orally Once a day Active 1 tablet Omeprazole ND 91770136020 40 MG Orally Once a day A ctive 1 capsule Vitamin D ND 35658595694 2000 UNIT Orally once a day Active not defined Prednisone Taper ND 18604766816 5mg May 18, 2019 June 02, 2019 Active 3 tablets for 5 days, 2 tablets for 5 days and then 1 tablet for 5 days Meloxicam ND 12597389479 7.5 MG Orally Once a day A ctive 1 tablet Fenofibrate ND 23238265887 54 MG Orally Once a day Active 1 tablet with a meal Vital Signs Date/Time: May 18, 2019 BMI 28.11 Index Weight 134.5 lbs Height 58 in Temperature 98.9 F Cardiac Monitoring Heart Rate 72 /min Blood Pressure Diastolic 68 mm Hg Blood Pressure Systolic 108 mm Hg Results Name Result Date Reference Range Unit Abnormali ty Flag COMPREHENSIVE METABOLIC PANEL W/EGFR ----CALCIUM 9.4 51706735 8.6-10.4 mg/dL N ----CARBON DIOXIDE 24 20190518 20-32 mmol/L N ----ALT 10 87593030 6-29 U/L N ----CREATININE 0.89 34715903 0.60-0.93 mg/dL N ----AST 20 18806987 10-35 U/L N ----eGFR NON-AFR. ALGERIAN 63 13811831 > OR = 60 mL/min/1. 73m2 N ----ALKALINE PHOSPHATASE 80 82222718 33-130 U/L N ----eGFR 73 30086468 > OR = 60 mL/min/1.7 3m2 N ----BILIRUBIN, TOTAL 0.4 20399841 0.2-1.2 mg/dL N ----BUN/CREATININE RATIO NOT APPLICABLE 85525743 6-22 (calc) ----ALBUMIN/GLOBULIN RATIO 1.1 95340177 1.0-2.5 (calc) N ----SODIUM 137 95573406 135-146 mmol/L N ----GLOBULIN 3.3 76949294 1.9-3.7 g/dL (calc) N ----POTASSIUM 4.0 62560632 3.5-5.3 mmol/L N ----ALBUMIN 3.7 34598243 3.6-5.1 g/dL N ----GLUCOSE 111 53566162 65-99 mg/dL H ----CHLORIDE 105 27616972 98-110 mmol/L N ----UREA NITROGEN (BUN) 11 32275986 7-25 mg/dL N ----PROTEIN, TOTAL 7.0 98269340 6.1-8.1 g/dL N SED RATE BY MODIFIED WESTERGREN ----SED RATE BY MODIFIED WESTERGREN 25 59612839 < OR = 30 mm/h N C-REACTIVE PROTEIN ----C-REACTIVE PROTEIN 1.5 22323217 <8.0 mg/L N CBC (INCLUDES DIFF/PLT) ----MCHC 31.0 45103352 32.0-36.0 g/dL L ----MCH 31.3 84921074 27.0-33.0 pg N ----PLATELET COUNT 243 36566862 140-400 Thousand/uL N ----RDW 12.0 02418749 11.0-15.0 % N ----BASOPHILS 1.0 99973179 % N ----ABSOLUTE NEUTROPHILS 3005 60033792 0335-1449 cells/uL N ----ABSOLUTE LYMPHOCYTES 1270 59716718 850-3900 cells/uL N ----MPV 10.6 01836662 7.5-12.5 fL N ----ABSOLUTE BASOPHILS 50 70692562 0-200 cells/uL N ----HEMATOCRIT 36.8 71686748 35.0-45.0 % N ----NEUTROPHILS 60.1 97211401 % N ----MCV 101.1 98769455 80.0-100.0 fL H ----ABSOLUTE MONOCYTES 575 90023766 200-950 cells/uL N ----RED BLOOD CELL COUNT 3.64 62628716 3.80-5.10 Million/uL L ----ABSOLUTE EOSINOPHILS 100 92638753 15-500 cells/uL N ----HEMOGLOBIN 11.4 10123919 11.7-15.5 g/dL L ----EOSINOPHILS 2.0 74756655 % N ----WHITE BLOOD CELL COUNT 5.0 83922670 3.8-10.8 Thousand/ uL N ----LYMPHOCYTES 25.4 80606991 % N ----MONOCYTES 11.5 10384697 % N VITAMIN D, 25-HYDROXY, LC/MS/MS ----VITAMIN D, 25-OH, TOTAL 45 94556374 30-100 ng/mL N Summary Purpose [employer] Submission
--- OUTSIDE RECORDS SUMMARY | 2020-04-21 13:42 | XMS REPORT ---
Author Author LASHA Jimenez Organization [employer] Address Unknown Phone Unavailable Care Team Providers Care Hogshead Salvage Name Role Phone Roscoe Jimenez CP Unavailable [...] Start Date End Date Status Dosage Prolia [facility] 54910225385 60 MG/ML Subcutaneous q 6 months March 31 9 Active as directed Results No Known Results Summary Purpose [employer] Submission
--- OUTSIDE RECORDS SUMMARY | 2020-04-21 13:42 | XMS REPORT ---
Author Author LASHA Jimenez Organization [employer] Address Unknown Phone Unavailable Care Team Providers Care Statement Clerks Manager Name Role Phone Roscoe Jimenez CP Unavailable Allergies No Known Allergies Problems Problem Type Condition Code Onset Dates Condition Statu s Assessment Other abnormality of red blood cells R71.8 Active Assessment Rheumatoid arthritis with rh eumatoid factor of multiple sites without organ or systems involvement M05.79 Active Assessment Other terminal makeup operator (current) drug therapy Z79.899 Active Problem Age related osteoporosis M81.0 Act sumi Problem Rheumatoid arthritis with rh eumatoid factor of multiple sites without organ or systems involvement M05.79 Active Problem Vitamin D deficiency, unspecified E55.9 Active Assessment Other rheumatoid arthritis with rheumato id factor of multiple sites M05.89 Active Problem Other terminal makeup operator (current) drug therapy Z79.899 Active Problem Other rheumatoid arthritis with rheumato id factor of multiple sites M05.89 Active Medications No Known Medications Results No Known Results Summary Purpose [employer] Submission
--- OUTSIDE RECORDS SUMMARY | 2020-04-21 13:42 | XMS REPORT ---
Author Author LASHA Reinoso Organization [employer] Address Unknown Phone Unavailable Care Team Providers Care Kitchen Operator Name Role Phone Cynthia Reinoso CP Unavailable Allergies No Known Allergies Problems Problem Type Condition Code Onset Dates Condition Statu s Problem Age related osteoporosis M81.0 Act sumi Problem Rheumatoid arthritis with rh eumatoid factor of multiple sites without organ or systems involvement M05.79 Active Problem Vitamin D deficiency, unspecified E55.9 Active Problem Other supervisor intermediates (current) drug therapy Z79.899 Active Problem Other rheumatoid arthritis with rheumato id factor of multiple sites M05.89 Active Medications No Known Medications Results No Known Results Summary Purpose [employer] Submission
--- OUTSIDE RECORDS SUMMARY | 2020-04-21 13:42 | XMS REPORT ---
Author Author LASHA Jimenez Organization [employer] Address Unknown Phone Unavailable Care Team Providers Care Insulation And Flooring Assembler Name Role Phone Roscoe Jimenez CP Unavailable Allergies No Known Allergies Problems Problem Type Condition Code Onset Dates Condition Statu s Problem Age related osteoporosis M81.0 Act sumi Problem Rheumatoid arthritis with rh eumatoid factor of multiple sites without organ or systems involvement M05.79 Active Problem Vitamin D deficiency, unspecified E55.9 Active Problem Other custodial (current) drug therapy Z79.899 Active Problem Other rheumatoid arthritis with rheumato id factor of multiple sites M05.89 Active Medications No Known Medications Results No Known Results Summary Purpose [employer] Submission
--- OUTSIDE RECORDS SUMMARY | 2020-04-21 13:42 | XMS REPORT ---
Author Author LASHA Richardson Organization [employer] Address Unknown Phone Unavailable Care Team Providers Care Project Finance Analyst Name Role Phone Francis Richardson Unavailable Allergies, Adverse Reactions, Alerts Substance Reaction Event Type Naproxen stomach upset Drug Allergy cipro rash Non Drug Allergy MTX raised lft Non Drug Allergy hcq eye prob Non Drug Allergy Problems Problem Type Condition Code Onset Dates Condition Statu s Assessment Screening for tuberculosis Z11.1 A ctive Assessment Rheumatoid arthritis with rh eumatoid factor of multiple sites without organ or systems involvement M05.79 Active Assessment Other chcf (current) drug therapy Z79.899 Active Assessment Encounter for screening for other infect ious and parasitic diseases Z11.8 Active Assessment Encounter for screening for other viral diseases Z11.5 9 Active Assessment Encounter for screening for other bacterial diseases Z 11.2 Active Problem Vitamin D deficiency, unspecified E55.9 Active Problem Age related osteoporosis M81.0 Act sumi Problem Depression F32.9 Active Problem Other rheumatoid arthritis with rheumato id factor of multiple sites M05.89 Active Problem Rheumatoid arthritis with rh eumatoid factor of multiple sites without organ or systems involvement M05.79 Active Problem Other chcf (current) drug therapy Z79.899 Active Medications Medication Code System Code Instructions Start Date End Date Status Dosage Sulfasalazine ND 99881340431 500 MG Orally BID Dec 22, 2019 Active 2 tabs Citalopram Hydrobromide ND 23279314423 20 mg Orally Once a day Active 1 tablet Vitamin B12 ND 77444431099 1000 MCG Orally Once a day Active 1 tablet Fenofibrate ND 68680674033 54 MG Orally Once a day Active 1 tablet with a meal Vitamin D ND 37632696948 2000 UNIT Orally once a day Active not defined Lisinopril ND 86184314971 20 MG Orally Once a day A ctive 1 tablet Prednisone Taper ND 26735887286 5mg orally as directed March 21, 2020 Active 3 tablets for 5 days, 2 tablets for 5 days and then 1 tablet for 5 days Omeprazole [facility] 34063821331 40 MG Orally Once a day PRN Active 1 capsule Results No Known Results Summary Purpose [employer] Submission
--- OUTSIDE RECORDS SUMMARY | 2020-04-21 13:42 | XMS REPORT ---
Author Author LASHA Jimenez Organization [employer] Address Unknown Phone Unavailable Care Team Providers Care Die Cast Die Maker Name Role Phone Roscoe Jimenez CP Unavailable Allergies No Known Allergies Problems Problem Type Condition Code Onset Dates Condition Statu s Problem Age related osteoporosis M81.0 Act sumi Problem Rheumatoid arthritis with rh eumatoid factor of multiple sites without organ or systems involvement M05.79 Active Problem Vitamin D deficiency, unspecified E55.9 Active Problem Other termite control servicer (current) drug therapy Z79.899 Active Problem Other rheumatoid arthritis with rheumato id factor of multiple sites M05.89 Active Medications No Known Medications Results No Known Results Summary Purpose [employer] Submission
--- OUTSIDE RECORDS SUMMARY | 2020-04-21 13:42 | XMS REPORT ---
Author LASHA Blevins [facility] [employer] Address Unknown Phone Unavailable Care Team Providers Care Dry Dip Worker Name Role Phone Cynthia Reinoso CP Unavailable Allergies, Adverse Reactions, Alerts Substance Reaction Event Type Naproxen stomach upset Drug Allergy MTX raised lft Non Drug Allergy hcq eye prob Non Drug Allergy cipro rash Non Drug Allergy Problems Problem Type Condition Code Onset Dates Condition Statu s Assessment Rheumatoid arthritis with rh eumatoid factor of multiple sites without organ or systems involvement M05.79 Active Problem Age related osteoporosis M81.0 Act sumi Problem Rheumatoid arthritis with rh eumatoid factor of multiple sites without organ or systems involvement M05.79 Active Problem Vitamin D deficiency, unspecified E55.9 Active Assessment Age related osteoporosis M81.0 Act sumi Problem Other fdc (current) drug therapy Z79.899 Active Problem Other rheumatoid arthritis with rheumato id factor of multiple sites M05.89 Active Medications Medication Code System Code Instructions Start Date End Date Status Dosage Vitamin D [facility] 97901323230 2000 UNIT Orally once a day Active not defined Prolia [facility] 97484444189 60 MG/ML Subcutaneous Sep 07, 2018 Active as directed Fenofibrate ND 45076757636 54 MG Orally Once a day Active 1 tablet with a meal Citalopram Hydrobromide [facility] 25861266288 20 MG Orally Once a day Active 1 tablet Lisinopril ND 00893433492 20 MG Orally Once a day A ctive 1 tablet Anoro Ellipta ND 00904912048 62.5-25 MCG/INH Inhalation Once a day Active 1 puff Meloxicam ND 96221255217 7.5 MG Orally Once a day A ctive 1 tablet Sulfasalazine ND 84709198134 500 MG Orally bid Acti ve 1 tablet Omeprazole ND 13022653755 40 MG Orally Once a day A ctive 1 capsule Alendronate Sodium [facility] 01345787123 70 MG Orally once a week Sep 07, 2018 Inactive 1 tablet Vital Signs Date/Time: Sep 07, 2018 BMI 26.58 Index Weight 127.2 lbs Height 58 in Temperature 97.2 F Cardiac Monitoring Heart Rate 70 /min Blood Pressure Diastolic 72 mm Hg Blood Pressure Systolic 106 mm Hg Results Name Result Date Reference Range Unit Abnormali ty Flag COMPREHENSIVE METABOLIC PANEL W/EGFR ----CALCIUM 9.8 73255872 8.6-10.4 mg/dL N ----CARBON DIOXIDE 26 20180907 20-32 mmol/L N ----ALT 13 20180907 6-29 U/L N ----CREATININE 0.95 20180907 0.60-0.93 mg/dL H ----AST 27 20180907 10-35 U/L N ----eGFR NON-AFR. TURKISH 59 13460082 > OR = 60 mL/min/1. 73m2 L ----ALKALINE PHOSPHATASE 68 20180907 33-130 U/L N ----eGFR 68 63962948 > OR = 60 mL/min/1.7 3m2 N ----BILIRUBIN, TOTAL 0.7 20180907 0.2-1.2 mg/dL N ----BUN/CREATININE RATIO 13 20180907 6-22 (calc) N ----ALBUMIN/GLOBULIN RATIO 1.2 20180907 1.0-2.5 (calc) N ----SODIUM 140 20180907 135-146 mmol/L N ----GLOBULIN 3.3 16837312 1.9-3.7 g/dL (calc) N ----POTASSIUM 4.0 20180907 3.5-5.3 mmol/L N ----GLUCOSE 94 01748207 65-99 mg/dL N ----CHLORIDE 104 20180907 98-110 mmol/L N ----ALBUMIN 4.1 14800151 3.6-5.1 g/dL N ----UREA NITROGEN (BUN) 12 20180907 7-25 mg/dL N ----PROTEIN, TOTAL 7.4 10471694 6.1-8.1 g/dL N SED RATE BY MODIFIED WESTERGREN ----SED RATE BY MODIFIED WESTERGREN 19 27065564 < OR = 30 mm/h N C-REACTIVE PROTEIN ----C-REACTIVE PROTEIN 1.2 99612950 <8.0 mg/L N CBC (INCLUDES DIFF/PLT) ----MCHC 32.8 73325263 32.0-36.0 g/dL N ----MCH 31.2 07178856 27.0-33.0 pg N ----PLATELET COUNT 209 86117878 140-400 Thousand/uL N ----RDW 11.7 02819471 11.0-15.0 % N ----BASOPHILS 1.5 10648962 % N ----ABSOLUTE NEUTROPHILS 1989 84802846 6164-3232 cells/uL N ----ABSOLUTE LYMPHOCYTES 1275 03837609 850-3900 cells/uL N ----MPV 10.2 02508976 7.5-12.5 fL N ----ABSOLUTE BASOPHILS 62 41255963 0-200 cells/uL N ----HEMATOCRIT 37.2 21225972 35.0-45.0 % N ----NEUTROPHILS 48.5 02487209 % N ----MCV 95.1 49619628 80.0-100.0 fL N ----RED BLOOD CELL COUNT 3.91 35778981 3.80-5.10 Million/uL N ----ABSOLUTE MONOCYTES 615 60476494 200-950 cells/uL N ----ABSOLUTE EOSINOPHILS 160 12269120 15-500 cells/uL N ----HEMOGLOBIN 12.2 36092522 11.7-15.5 g/dL N ----EOSINOPHILS 3.9 75226040 % N ----WHITE BLOOD CELL COUNT 4.1 47605740 3.8-10.8 Thousand/ uL N ----LYMPHOCYTES 31.1 92643975 % N ----MONOCYTES 15.0 16781079 % N VITAMIN D, 25-HYDROXY, LC/MS/MS ----VITAMIN D, 25-OH, TOTAL 42 56345336 30-100 ng/mL N Summary Purpose [employer]ClinicalWorks Submission
--- OUTSIDE RECORDS SUMMARY | 2020-04-21 13:42 | XMS REPORT ---
Author Author LASHA Jimenez Organization [employer] Address Unknown Phone Unavailable Care Team Providers Care Dental Instrument Maker Name Role Phone Roscoe Jimenez CP [...]
--- OUTSIDE RECORDS SUMMARY | 2020-04-21 13:42 | XMS REPORT ---
Author Author LASHA Jimenez Organization [employer] Address Unknown Phone Unavailable Care Team Providers Care Grain Buyer Name Role Phone Roscoe Jimenez CP Unavailable Allergies No Known Allergies Problems Problem Type Condition Code Onset Dates Condition Statu s Problem Age related osteoporosis M81.0 Act sumi Problem Rheumatoid arthritis with rh eumatoid factor of multiple sites without organ or systems involvement M05.79 Active Problem Vitamin D deficiency, unspecified E55.9 Active Problem Other terminal system operator (current) drug therapy Z79.899 Active Problem Other rheumatoid arthritis with rheumato id factor of multiple sites M05.89 Active Medications No Known Medications Results No Known Results Summary Purpose [employer] Submission
--- NOTE | 2020-04-21 13:45 | NUR ---
VOIDED ON ARRIVAL TO ER BEFORE SEN BY TRIAGE/MD
[2020-04-21 13:52] LABS: BASOPHILS % 0.6 % (0.0-1.0); EOSINOPHILS # (AUTO) 0.1 (0.0-0.4); EOSINOPHILS % 2.3 % (0.0-6.0); HEMATOCRIT 37.7 % (34.2-44.1); HEMOGLOBIN 11.8 g/dL (12.0-16.0); LYMPHOCYTES # (AUTO) 1.5 (1.0-3.2); LYMPHOCYTES % 30.9 % (18.0-39.1); MEAN CORPUSCULAR HEMOGLOBIN 30.6 pg (28-32); MEAN CORPUSCULAR HGB CONC 31.3 g/dL (31-35); MEAN CORPUSCULAR VOLUME 97.7 fL (81-99); MONOCYTES # (AUTO) 0.6 (0.2-0.8); NEUTROPHILS # (AUTO) 2.6 (2.1-6.9); PLATELET COUNT 251 x10e3/uL (140-360); RED BLOOD COUNT 3.86 x10e6/uL (3.6-5.1); RED CELL DISTRIBUTION WIDTH 14.3 % (11.7-14.4)
[2020-04-21 14:13] LABS: ALBUMIN 3.8 g/dL (3.5-5.0); ANION GAP 15.1 mmol/L (8-16); CALCIUM 9.7 mg/dL (8.4-10.2); CREATININE, SERUM 0.98 mg/dL (0.57-1.11); POTASSIUM 4.1 mmol/L (3.5-5.1)
[2020-04-21 14:20] LABS: CREATINE KINASE MB 1.2 ng/mL (0-5.0)
[2020-04-21 15:41] LABS: COLOR,URINE YELLOW (YELLOW)
[2020-04-21 15:42] LABS: BILIRUBIN,URINE NEGATIVE (NEGATIVE); CLARITY,URINE SL CLOUDY (CLEAR); KETONES,URINE NEGATIVE (NEGATIVE); LEUKOCYTE ESTERASE ,URINE MODERATE (NEGATIVE); NITRITE,URINE POSITIVE (NEGATIVE); PROTEIN,URINE DIPSTICK NEGATIVE (NEGATIVE); URINE UROBILINOGEN 0.2 mg/dL (0.2 - 1)
[2020-04-21 15:53] LABS: AMORPHOUS SEDIMENT,URINE FEW (FEW); BACTERIA,URINE MANY /HPF; EPITHELIAL CELLS,URINE FEW /LPF; RENAL EPITHELIAL CELLS,URINE RARE
--- NOTE | 2020-04-21 15:56 | Diagnostic Imaging Report ---
EXAM: CT Abdomen and Pelvis WITH intravenous contrast INDICATION: Abdominal pain COMPARISON: None. TECHNIQUE: Abdomen and pelvis were scanned utilizing a multidetector helical scanner from the lung base to the pubic symphysis after administration of IV contrast. Coronal and sagittal reformations were obtained. Routine protocol was performed. Scan was performed during portal venous phase. IV CONTRAST: 100mL of Isovue 370 ORAL CONTRAST: Water RADIATION DOSE: Total DLP: 338 mGy*cm Dose modulation, iterative reconstruction, and/or weight based adjustment of the mA/kV was utilized to reduce the radiation dose to as low as reasonably achievable. FINDINGS: LOWER THORAX: Bibasilar dependent subsegmental atelectasis. HEPATOBILIARY: Diffuse hepatic steatosis. No focal liver lesion. No biliary ductal dilation. Status post cholecystectomy. SPLEEN: No splenomegaly. PANCREAS: No focal masses or ductal dilatation. ADRENALS: No adrenal nodules. KIDNEYS/URETERS: No hydronephrosis or renal calculi. Right lower pole 1 cm renal cyst. PELVIC ORGANS/BLADDER: Unremarkable. PERITONEUM / RETROPERITONEUM: No free air or fluid. LYMPH NODES: No lymphadenopathy. VESSELS: Scattered athetotic calcifications of the nonaneurysmal abdominal aorta and major branches. GI TRACT: Diverticulosis without CT evidence of diverticulitis. No abnormal bowel thickening. No bowel obstruction. Normal appendix. BONES AND SOFT TISSUES: No acute osseous injury. No suspicious lytic or blastic lesions. IMPRESSION: No acute findings in the abdomen or pelvis. Diffuse hepatic steatosis. Diverticulosis without CT evidence of diverticulitis. Signed by: Pati Sloan MD on 04/21/2020 3:53 PM
== END 2020-04-21 16:48 | disposition home or self-care (01) ==
LOC: ER 13:38
DX: R10.11 Right upper quadrant pain (principal); I10 Essential (primary) hypertension; M06.9 Rheumatoid arthritis, unspecified; E78.5 Hyperlipidemia, unspecified; F41.9 Anxiety disorder, unspecified
CPT/HCPCS: 36415; 74177; 80053; 81001; 82550; 82553; 83690; 83880; 84484; 85025; 93005; 99284; J2270; J2405; J7030

== ENCOUNTER 2020-04-25 19:23 | Observation (INO) | payer MEDICARE, OTHER ==
[~2020-04-25] VITALS: Ht 149.9 cm; Wt 59.9 kg
--- NOTE | 2020-04-25 19:42 | Emergency Department Note ---
History of Present Illnes History of Present Illness History of Present Illness This is a 74 year old female presents to the ED for myalgias and R sided CP which was present since Friday04/21/20. Historian: Patient, Family Member Arrival Mode: Car History limited by: language barrier Stockroom Worker Required: Yes Onset (how long ago): day(s) (4) Radiation: Reports neck, Reports extremity Severity: moderate Onset quality: gradual Duration (how long): day(s) Timing of current episode: constant Progression: worsening Chronicity: new Relieving factors: none Exacerbating factors: none Associated symptoms: Reports chest pain, Reports malaise, Reports weakness Previous service: medications given, tests performed Past Medical/Family History Physician Review I have reviewed the patient's past medical and family history. Any updates have been documented here. Past Medical History Recent Fever: No Clinical Suspicion of Infectio: No New/Unexplained Change in Ment: No Past Medical History: Hypertension, Anxiety, Depression, Hyperlipedemia Other Medical History: RHEUMATORY ARTHRITIS. Past Surgical History: Hysterectomy, Knee Replacement, Lumpectomy Social History Smoking Cessation: Never Smoker Alcohol Use: None Any Illegal Drug Use: No Review of Systems Review of Systems Constitutional: Reports weakness; Denies fever EENTM: Reports no symptoms Cardiovascular: Reports chest pain Respiratory: Reports dyspnea Gastrointestinal: Reports no symptoms Genitourinary: Reports no symptoms Musculoskeletal: Reports muscle pain, Reports muscle stiffness Integumentary: Reports no symptoms Neurological: Reports no symptoms Psychological: Reports no symptoms Endocrine: Reports no symptoms Hematological/Lymphatic: Reports no symptoms Physical Exam Related Data Allergies: Coded Allergies: ciprofloxacin (Verified Allergy, Severe, 02/26/11) Triage Vital Signs Vital Signs Date Time Temp Pulse Resp B/P (MAP) Pulse Ox O2 Delivery O2 Flow Rate FiO2 04/25/20 19:45 97.9 85 18 147/66 99 Vital signs reviewed: Yes Physical Exam CONSTITUTIONAL Constitutional: Present well-developed, Present ill appearing HENT HENT: Present normocephalic, Present atraumatic, Present oropharynx clear/moist, Present nose normal HENT L/R: Present left ext ear normal, Present right ext ear normal EYES Eyes: Reports PERRL, Reports conjunctivae normal NECK Neck: Present ROM normal PULMONARY Pulmonary: Present effort normal, Present breath sounds normal CARDIOVASCULAR Cardiovascular: Present regular rhythm, Present heart sounds normal, Present capillary refill normal, Present normal rate GASTROINTESTINAL Abdominal: Present soft, Present nontender, Present bowel sounds normal GENITOURINARY Genitourinary: Present exam deferred SKIN Skin: Present warm, Present dry MUSCULOSKELETAL Musculoskeletal: Present ROM normal, Present other (ulnar deviation b/l UE) NEUROLOGICAL Neurological: Present alert, Present oriented x 3, Present no gross motor or sensory deficits PSYCHOLOGICAL Psychological: Present mood/affect normal, Present judgement normal Results Laboratory Lab results reviewed: Yes Laboratory comments Laboratory Tests Test 04/25/20 22:35 04/25/20 20:10 04/25/20 20:00 Urine Color Yellow (YELLOW) Urine Clarity Sl cloudy (CLEAR) Urine pH 7 (5 - 7) Urine Specific [place] 1.020 (1.010-1.025) Urine Protein Negative (NEGATIVE) Urine Glucose (UA) Negative (NEGATIVE) Urine Ketones Negative (NEGATIVE) Urine Blood Negative (NEGATIVE) Urine Nitrite Negative (NEGATIVE) Urine Bilirubin Negative (NEGATIVE) Urine Urobilinogen 0.2 mg/dL (0.2 - 1) Urine Leukocyte Esterase Small (NEGATIVE) Urine RBC None /HPF (0-5) Urine WBC 11-20 /HPF (0-5) Urine Epithelial Cells Few /LPF (NONE) Urine Bacteria Few /HPF (NONE) White Blood Count 8.34 x10e3/uL (4.8-10.8) Red Blood Count 3.87 x10e6/uL (3.6-5.1) Hemoglobin 11.9 g/dL (12.0-16.0) Hematocrit 37.0 % (34.2-44.1) Mean Corpuscular Volume 95.6 fL (81-99) Mean Corpuscular Hemoglobin 30.7 pg (28-32) Mean Corpuscular Hemoglobin Concent 32.2 g/dL (31-35) Red Cell Distribution Width 14.2 % (11.7-14.4) Platelet Count 264 x10e3/uL (140-360) Neutrophils (%) (Auto) 84.0 % (38.7-80.0) Lymphocytes (%) (Auto) 7.0 % (18.0-39.1) Monocytes (%) (Auto) 6.5 % (4.4-11.3) Eosinophils (%) (Auto) 1.9 % (0.0-6.0) Basophils (%) (Auto) 0.2 % (0.0-1.0) Neutrophils # (Auto) 7.0 (2.1-6.9) Lymphocytes # (Auto) 0.6 (1.0-3.2) Monocytes # (Auto) 0.5 (0.2-0.8) Eosinophils # (Auto) 0.2 (0.0-0.4) Basophils # (Auto) 0.0 (0.0-0.1) Absolute Immature Granulocyte (auto 0.03 x10e3/uL (0-0.1) Erythrocyte Sedimentation Rate 28 mm/hr (0-20) Sodium Level 138 mmol/L (136-145) Potassium Level 4.0 mmol/L (3.5-5.1) Chloride Level 105 mmol/L (98-107) Carbon Dioxide Level 21 mmol/L (22-29) Anion Gap 16.0 mmol/L (8-16) Blood Urea Nitrogen 10 mg/dL (7-26) Creatinine 1.13 mg/dL (0.57-1.11) Estimat Glomerular Filtration Rate 47 ML/MIN (60-) BUN/Creatinine Ratio 9 (6-25) Glucose Level 111 mg/dL (74-118) Calcium Level 9.4 mg/dL (8.4-10.2) Total Bilirubin 0.4 mg/dL (0.2-1.2) Aspartate Amino Transf (AST/SGOT) 26 IU/L (5-34) Alanine Aminotransferase (ALT/SGPT) 11 IU/L (0-55) Alkaline Phosphatase 66 IU/L (40-150) Creatine Kinase 95 IU/L (29-168) Creatine Kinase MB 1.40 ng/mL (0-5.0) Troponin I 0.029 ng/mL (0-0.300) B-Type Natriuretic Peptide 30.6 pg/mL (0-100) Total Protein 7.7 g/dL (6.5-8.1) Albumin 3.6 g/dL (3.5-5.0) Globulin 4.1 g/dL (2.3-3.5) Albumin/Globulin Ratio 0.9 (0.8-2.0) Imaging Imaging results reviewed: Yes Impressions [facility] [address] [place], [place] [id number] Patient Name: LASHA GUERRERO MR #: [id number] : 1945 Age/Sex: 74/F Req #: [id number] [facility] Physician: Ordered by: ADAMA CHAUDHRY DO Report #: [id number] Location: ER Room/Bed: Procedure: [id number] CT/CT CHEST W Exam Date: 04/25/20 Exam Time: 2113 REPORT STATUS: Signed EXAM: CT Chest WITH contrast (PE protocol) 04/25/2020 9:14 PM INDICATION: Chest pain COMPARISON: None TECHNIQUE: Chest was scanned utilizing a multidetector helical scanner from the lung apex through the level of the adrenal glands with administration of IV contrast. Coronal and sagittal reformations were obtained. Routine protocol was performed. IV CONTRAST: 100 mL of Omnipaque 300 COMPLICATIONS: None RADIATION DOSE: Total DLP: 440 mGy*cm Estimated effective dose: (DLP x 0.014 x size factor) mSv CTDIvol has been reviewed. It is below the limits set by the Radiation Protocol Committee (RPC). Dose modulation, iterative reconstruction, and/or weight based adjustment of the mA/kV was utilized to reduce the radiation dose to as low as reasonably achievable. FINDINGS: LINES/ TUBES: None. LUNGS AND AIRWAYS: Scattered and peripheral reticular opacities. Emphysematous changes in the upper lungs. Airways are normal. Low lung volumes with subtle groundglass mosaic attenuation. PLEURA: The pleural spaces are clear. HEART AND MEDIASTINUM: The thyroid gland is normal. No mediastinal, hilar or axillary lymphadenopathy. The heart is normal in size. There is no pericardial effusion. Triple vessel coronary artery and aortic calcifications. UPPER ABDOMEN: Cholecystectomy clips. BONES: Low bone mineral density. Degenerative changes. SOFT TISSUES: Unremarkable. IMPRESSION: No pulmonary embolus. Coronary artery calcific atherosclerosis. Aortic valve calcific disease. Low lung volumes with scattered atelectasis/hypoaeration. Mild pulmonary edematous changes. Signed by: Pranav Amos DO on 04/25/2020 11:29 PM Dictated By: PRANAV AMOS DO 28 Transcribed By: STEPHEN on 04/25/202328 COPY TO: ADAMA CHAUDHRY DO~ Procedures 12 Lead ECG Interpretation ECG Interpretation : ECG: ECG 1 Stockroom Worker: Interpreted by ED physician Date: Apr 25, 2020 Prior ECG tracings: reviewed Rhythm: sinus rhythm Rate: normal BPM: 84 QRS axis: normal T waves normal: No T waves flattening: III, aVR, V4, V5, V6 Other findings: PRWP Clinical Impression: non-specific ECG Assessment & Plan Medical Decision Making MDM 74 yof returns to the ED for r sided CP. CTA ordered to r/o pericardial effusion and PE. EKG and Cardiac enzymes reviewed with patient. Plan to admit for observation for Chest Pain Assessment & Plan Final Impression: (1) Chest pain (2) Abnormal renal function Depart Disposition: ADMITTED ADAMA CHAUDHRY DO Apr 25, 2020 19:42
[2020-04-25] MEDS ORDERED: ASPIRIN 81 MG CHEW TAB PO ONE (19:45)
[2020-04-25] MEDS ORDERED: METHYLPREDNISOLONE SOD SUCC 125 MG/2ML VIAL IV ONE (20:00)
[2020-04-25 20:26] LABS: BASOPHILS % 0.2 % (0.0-1.0); EOSINOPHILS # (AUTO) 0.2 (0.0-0.4); EOSINOPHILS % 1.9 % (0.0-6.0); HEMOGLOBIN 11.9 g/dL (12.0-16.0); LYMPHOCYTES # (AUTO) 0.6 (1.0-3.2); MEAN CORPUSCULAR HEMOGLOBIN 30.7 pg (28-32); MEAN CORPUSCULAR HGB CONC 32.2 g/dL (31-35); MEAN CORPUSCULAR VOLUME 95.6 fL (81-99); MONOCYTES # (AUTO) 0.5 (0.2-0.8); MONOCYTES % 6.5 % (4.4-11.3); PLATELET COUNT 264 x10e3/uL (140-360); RED BLOOD COUNT 3.87 x10e6/uL (3.6-5.1); RED CELL DISTRIBUTION WIDTH 14.2 % (11.7-14.4)
[2020-04-25 20:33] LABS: BILIRUBIN,URINE NEGATIVE (NEGATIVE); CLARITY,URINE SL CLOUDY (CLEAR); COLOR,URINE YELLOW (YELLOW); KETONES,URINE NEGATIVE (NEGATIVE); LEUKOCYTE ESTERASE ,URINE SMALL (NEGATIVE); NITRITE,URINE NEGATIVE (NEGATIVE); PROTEIN,URINE DIPSTICK NEGATIVE (NEGATIVE); URINE UROBILINOGEN 0.2 mg/dL (0.2 - 1)
[2020-04-25 20:40] LABS: ALBUMIN 3.6 g/dL (3.5-5.0); ALBUMIN/GLOBULIN RATIO 0.9 (0.8-2.0); CALCIUM 9.4 mg/dL (8.4-10.2); CREATININE, SERUM 1.13 mg/dL (0.57-1.11)
[2020-04-25 20:43] LABS: BACTERIA,URINE FEW /HPF; EPITHELIAL CELLS,URINE FEW /LPF
[2020-04-25 20:46] LABS: CREATINE KINASE MB 1.4 ng/mL (0-5.0)
[2020-04-25] MEDS ORDERED: SODIUM CHLORIDE 0.9% 50ML 50 ML ONE ×2 (21:08→22:48)
[2020-04-25] MEDS ORDERED: IOPAMIDOL 370 MG/ML 200 ML INFUS..BTL INJ ONE ×2 (21:08→22:48)
--- NOTE | 2020-04-25 23:33 | Diagnostic Imaging Report ---
EXAM: CT Chest WITH contrast (PE protocol) 04/25/2020 9:14 PM INDICATION: Chest pain COMPARISON: None TECHNIQUE: Chest was scanned utilizing a multidetector helical scanner from the lung apex through the level of the adrenal glands with administration of IV contrast. Coronal and sagittal reformations were obtained. Routine protocol was performed. IV CONTRAST: 100 mL of Omnipaque 300 COMPLICATIONS: None RADIATION DOSE: Total DLP: 440 mGy*cm Estimated effective dose: (DLP x 0.014 x size factor) mSv CTDIvol has been reviewed. It is below the limits set by the Radiation Protocol Committee (RPC). Dose modulation, iterative reconstruction, and/or weight based adjustment of the mA/kV was utilized to reduce the radiation dose to as low as reasonably achievable. FINDINGS: LINES/ TUBES: None. LUNGS AND AIRWAYS: Scattered and peripheral reticular opacities. Emphysematous changes in the upper lungs. Airways are normal. Low lung volumes with subtle groundglass mosaic attenuation. PLEURA: The pleural spaces are clear. HEART AND MEDIASTINUM: The thyroid gland is normal. No mediastinal, hilar or axillary lymphadenopathy. The heart is normal in size. There is no pericardial effusion. Triple vessel coronary artery and aortic calcifications. UPPER ABDOMEN: Cholecystectomy clips. BONES: Low bone mineral density. Degenerative changes. SOFT TISSUES: Unremarkable. IMPRESSION: No pulmonary embolus. Coronary artery calcific atherosclerosis. Aortic valve calcific disease. Low lung volumes with scattered atelectasis/hypoaeration. Mild pulmonary edematous changes. Signed by: Pranav Amos DO on 04/25/2020 11:29 PM
[2020-04-26] MEDS ORDERED: MORPHINE SULFATE 2 MG/ML SYR 1ML IV PRN (00:30)
[2020-04-26] MEDS ORDERED: ASPIRIN 81 MG CHEW TAB PO ONE (00:30)
[2020-04-26] MEDS ORDERED: ONDANSETRON HCL INJ 2MG/ML 2ML 2 MG/ML VIAL IV PRN ×2 (00:30→05:30)
--- NOTE | 2020-04-26 05:26 | NUR ---
H&P: cc: diffuse body aches/malaise/fatigue HPI: 74yoF, PCP , developed diffuse body aches/malaise/fatigue for 1-2 days. no cp in particular. no sob/f/c/s/N/V/D. No known COVID19 exposure. PMH: HTN, depression PSHx: hysterectomy, cholecystectomy ALlergies; see emr FH/SH; ; no cigs meds; see MAR ROS: no f/c/s/N/V/D/BROWN/dizziness/confusion/vision changes/focal limb weakness v/s; revd PE tired appearing anicteric ns12s2 mod bs soft; nd; mild abdominal tenderness no leg edema skin dry n. affect a&ox3; castro labs/meds revd A/P: 74yoF Malaise/fatigue- rehydrate; supportive; PT consult; NHAN- rehydrate UTI- iv abx Depression- cont SSRI Prop: scd dispo: f/u labs Deni Negrete MD, PhD. A/P: Atypical CP NHAN UTI
[2020-04-26] MEDS ORDERED: ZOLPIDEM TARTRATE 5 MG TAB PO PRN (05:30)
[2020-04-26] MEDS ORDERED: DOCUSATE SODIUM 100 MG CAP PO PRN (05:30)
[2020-04-26] MEDS ORDERED: ACETAMINOPHEN 325 MG TAB PO PRN (05:30)
[2020-04-26] MEDS: CEFTRIAXONE SOD 1 GM/NS 50 ML 50 ML IV SCH (06:59)
[2020-04-26 07:21] LABS: CREATINE KINASE MB 0.7 ng/mL (0-5.0)
[2020-04-26] MEDS ORDERED: HYDROCHLOROTHIA25 MG PO (07:48)
[2020-04-26] MEDS ORDERED: TRICOR48 MG PO (07:48)
[2020-04-26] MEDS ORDERED: CITALOPRAM HBR20 MG PO (07:48)
[2020-04-26] MEDS ORDERED: LISINOPRIL10 MG PO (07:48)
[2020-04-26] MEDS ORDERED: PEPCID20 MG PO (07:48)
[2020-04-26] MEDS ORDERED: BACTRIM DS TAB1 EACH PO (07:48)
[2020-04-26] MEDS ORDERED: VITAMIN D350 MCG PO (07:48)
[2020-04-26] MEDS ORDERED: VITAMIN B-121000 MCG PO (07:48)
[2020-04-26] MEDS ORDERED: SULFASALAZINE500 MG PO (07:48)
[2020-04-26 07:53] VITALS: BP 121/52
[2020-04-26 08:00] VITALS: BP 121/52
--- NOTE | 2020-04-26 08:00 | NUR ---
RECEIVED PATIENT FROM ER TO ROOM 289. PATIENT IS IN STABLE CONDITION. ADMISSION HISTORY AND PHYSICAL ASSESSMENT COMPLETED AND DOCUMENTED. PATIENT ORIENTED TO ROOM AND POLICIES. CALL LIGHT WITHIN REACH. BED IN THE LOWEST POSITION.
[2020-04-26 08:05] VITALS: BP 121/52
--- NOTE | 2020-04-26 08:06 | NUR ---
PAGED DR. PERKINS TO ASK TO RENEW PATIENT'S HOME MEDICATIONS.
[2020-04-26] MEDS ORDERED: SODIUM CHLORIDE 0.45% 1,000 ML IV ONE (09:00)
[2020-04-26] MEDS: CYANOCOBALAMIN 1,000 MCG TAB PO SCH (09:40)
[2020-04-26] MEDS: SULFASALAZINE 500 MG TAB PO SCH ×2 (09:40→20:37)
[2020-04-26] MEDS: CITALOPRAM HYDROBROMIDE 20 MG TAB PO SCH (09:40)
[2020-04-26 12:26] VITALS: BP 133/61
[2020-04-26 13:05] LABS: CREATINE KINASE MB 1.1 ng/mL (0-5.0)
--- NOTE | 2020-04-26 16:14 | NUR ---
Discontinuing skilled PT services since patient is Mod I in functional mobility. Thank you. Addendum: 04/26/20 at 1615 by Jacky white PT Amended: Links added.
[2020-04-26 17:55] VITALS: BP 115/54
--- NOTE | 2020-04-26 19:07 | NUR ---
BEDSIDE SHIFT REPORT GIVEN TO ONCOMING NURSE. PATIENT IS RESTING IN BED. NO ACUTE DISTRESS NOTED. CALL LIGHT WITHIN REACH. BED IN THE LOWEST POSITION.
[2020-04-26 19:11] LABS: CREATINE KINASE MB 1.4 ng/mL (0-5.0)
--- NOTE | 2020-04-26 19:50 | NUR ---
RECEIVED REPORT FROM 7AM NURSE, PATIENT RESTING IN BED, NO DISTRESS NOTED. CALL LIGHT IN REACH.
[2020-04-26 20:00] VITALS: BP 121/51
[2020-04-26] MEDS: FENOFIBRATE 48 MG TAB PO SCH (20:37)
[2020-04-27] VITALS (9 sets, daily range): BP systolic 108–132; BP diastolic 44–77
[2020-04-27] MEDS: CEFTRIAXONE SOD 1 GM/NS 50 ML 50 ML IV SCH (05:02)
[2020-04-27 05:54] LABS: BASOPHILS % 0.2 % (0.0-1.0); EOSINOPHILS # (AUTO) 0.2 (0.0-0.4); EOSINOPHILS % 4.2 % (0.0-6.0); HEMATOCRIT 34.1 % (34.2-44.1); HEMOGLOBIN 10.7 g/dL (12.0-16.0); LYMPHOCYTES # (AUTO) 1.1 (1.0-3.2); MEAN CORPUSCULAR HEMOGLOBIN 30.4 pg (28-32); MEAN CORPUSCULAR HGB CONC 31.4 g/dL (31-35); MEAN CORPUSCULAR VOLUME 96.9 fL (81-99); MONOCYTES # (AUTO) 0.9 (0.2-0.8); MONOCYTES % 17.1 % (4.4-11.3); NEUTROPHILS # (AUTO) 2.8 (2.1-6.9); NEUTROPHILS % 56.3 % (38.7-80.0); PLATELET COUNT 240 x10e3/uL (140-360); RED BLOOD COUNT 3.52 x10e6/uL (3.6-5.1); RED CELL DISTRIBUTION WIDTH 14.3 % (11.7-14.4)
[2020-04-27 06:12] LABS: ALANINE AMINOTRANSFERASE 7 IU/L (0-55); ALBUMIN 2.9 g/dL (3.5-5.0); ALBUMIN/GLOBULIN RATIO 0.8 (0.8-2.0); ALKALINE PHOSPHATASE 37 IU/L (40-150); ANION GAP 12.1 mmol/L (8-16); BLOOD UREA NITROGEN 12 mg/dL (7-26); BUN/CREATININE RATIO 13 (6-25); CALCIUM 8.4 mg/dL (8.4-10.2); CARBON DIOXIDE 22 mmol/L (22-29); CHLORIDE 108 mmol/L (98-107); CREATININE, SERUM 0.89 mg/dL (0.57-1.11); EST GLOMERULAR FILTRATION RATE > 60 ML/MIN (60-); GLUCOSE 84 mg/dL (74-118); POTASSIUM 4.1 mmol/L (3.5-5.1); SODIUM 138 mmol/L (136-145)
[2020-04-27] MEDS ORDERED: KEFLEX500 MG PO (06:54)
--- NOTE | 2020-04-27 06:55 | NUR ---
D/C summary Principal dx: Malaise/fatigue- rehydrate; supportive; PT consult; NHAN- rehydrate UTI- iv abx secondary Dx: Depression- cont SSRI Prop: scd dispo: f/u labs d/c home stable f/u pcp 1 week d/c>35mins Deni Negrete MD, PhD.
--- NOTE | 2020-04-27 07:15 | NUR ---
REPORT GIVEN TO AM NURSE.
--- NOTE | 2020-04-27 07:15 | NUR ---
PATIENT IN BED RESTING WITH NO S/S OF DISCOMFORT. TELEMETRY BOX IN PLACE. BED IN LOWER POSITION, CALL LIGHT AT REACH.
[2020-04-27] MEDS: FAMOTIDINE 20 MG TAB PO SCH (07:30)
[2020-04-27] MEDS: CYANOCOBALAMIN 1,000 MCG TAB PO SCH (09:09)
[2020-04-27] MEDS: SULFASALAZINE 500 MG TAB PO SCH ×2 (09:09→20:26)
[2020-04-27] MEDS: CITALOPRAM HYDROBROMIDE 20 MG TAB PO SCH (09:09)
[2020-04-27] MEDS ORDERED: ONDANSETRON HCL 4 MG ORAL DISINTEGRATING TAB PO PRN (10:45)
[2020-04-27] MEDS ORDERED: MORPHINE SULFATE INJ 4 MG/ML INJ 1ML IV PRN (11:45)
--- NOTE | 2020-04-27 13:59 | NUR ---
PATIENT HAS A DISCHARGE ORDER PENDING BUSINESS TRAVEL CONSULTANT. DR BAUER IN TO SEE PATIENT, NEW ORDER RECEIVED. DR PERKINS NOTIFIED, ORDER RECEIVED TO HOLD THE DISCHARGE.
--- NOTE | 2020-04-27 19:10 | NUR ---
BEDSIDE REPORT GIVEN TO ON COMING NURSE.
--- NOTE | 2020-04-27 19:10 | NUR ---
patient received awake, alert, lying quietly in bed. no c/o pain noted. patient npo after mn for stress test tomorrow. patient verbalizes understanding of this. pm assessment complete. call trevino placed within reach. patient instructed to call for assistance when needed.
[2020-04-27] MEDS: FENOFIBRATE 48 MG TAB PO SCH (20:26)
[2020-04-28] VITALS: BP 143/62
[2020-04-28 04:30] VITALS: BP 118/52
[2020-04-28] MEDS: CEFTRIAXONE SOD 1 GM/NS 50 ML 50 ML IV SCH (05:23)
--- NOTE | 2020-04-28 07:14 | NUR ---
PATIENT IN BED RESTING WITH EYES CLOSED, NO DISTRESS NOTED. REMAINS NPO FOR A PROCEDURE. BED IN LOWER POSITION, CALL LIGHT AT REACH.
[2020-04-28] MEDS: FAMOTIDINE 20 MG TAB PO SCH (07:30)
[2020-04-28 07:44] VITALS: BP 107/47
[2020-04-28 08:02] VITALS: BP 107/47
[2020-04-28] MEDS: SULFASALAZINE 500 MG TAB PO SCH (09:00)
[2020-04-28] MEDS ORDERED: REGADENOSON 0.4 MG/5 ML SYR IV ONE (09:12)
--- NOTE | 2020-04-28 09:35 | NUR ---
Pt expressed no spiritual or emotional concerns at this time. Ophthalmic Nurse provided hospitality and provided information on how to reach surveillance technician, if needed. No need to follow at this time. BABAK OTTO Ophthalmic Nurse Spiritual Care Department O: [phone]
--- NOTE | 2020-04-28 10:20 | NUR ---
PATIENT OFF UNIT FOR A STRESS TEST.
[2020-04-28 14:00] VITALS: BP 142/69
--- NOTE | 2020-04-28 14:32 | NUR ---
PATIENT BACK TO UNIT FROM STRESS TEST. ALERT AND VERBALLY RESPONSIVE, DENIED PAIN AT THIS TIME. IN BED WITH CALL LIGHT AT REACH. DAUGHTER AT BED SIDE. V/S 97.8-66-18-142/69 AND 97% ON RA.
[2020-04-28] MEDS: CITALOPRAM HYDROBROMIDE 20 MG TAB PO SCH (15:03)
[2020-04-28] MEDS: CYANOCOBALAMIN 1,000 MCG TAB PO SCH (15:03)
[2020-04-28 16:06] VITALS: BP 116/48
--- NOTE | 2020-04-28 17:01 | NUR ---
TUTOR COORDINATOR IN TO SEE PATIENT, OK TO DISCHARGE PATIENT.
--- NOTE | 2020-04-28 17:50 | NUR ---
PATIENT DISCHARGED HOME. DISCHARGE INSTRUCTIONS, PRESCRIPTION, AND FOLLOW UP GIVEN TO PATIENT AND DAUGHTER, THEY VERBALIZED UNDERSTANDING. IV TO LEFT AC REMOVED WITH TIP INTACT. ALL PERSONAL ITEMS TAKEN WITH PATIENT. LEFT UNIT PER WHEEL CHAIR TO FRONT LOBBY IN STABLE CONDITION.
--- NOTE | 2020-04-28 18:50 | Progress Note ---
DATE: Cardiology Progress Note SUBJECTIVE: The patient is feeling better. Denies any typical angina or shortness of breath. OBJECTIVE: VITAL SIGNS: Temperature is 98.3, heart rate is 78, respirations 16, blood pressure is 116/48, oxygen saturation is 100% on room air. GENERAL: A well appearing, in no apparent distress. CARDIOVASCULAR: Regular rate and rhythm. LUNGS: Clear to auscultation. ABDOMEN: Soft, nontender, nondistended. EXTREMITIES: No clubbing, cyanosis, or edema. VASCULAR: 2+ pulses. CARDIOVASCULAR MEDICATIONS: Reviewed. LABORATORY DATA: Reviewed. Echocardiogram showed preserved left ventricular systolic function. Myocardial perfusion stress test showed normal myocardial perfusion without ischemia or scar with normal ejection fraction. IMPRESSION: 1. Precordial pain. 2. Hypertension. 3. Depression. 4. Hyperlipidemia. 5. Rheumatoid arthritis. RECOMMENDATIONS: The patient ruled out for acute myocardial infarction. Her echocardiogram and stress test were personally reviewed by myself and were within normal limits. She may be discharged from a cardiovascular standpoint with outpatient followup. Vitaliy Pappas DO BM/MODL /[id number]
--- NOTE | 2020-04-28 21:15 | Myoview Stress Test ---
DATE OF STUDY: 04/27/2020 13:20:00 Stress Test - Treadmill ONLY PROCEDURE TITLE: Rest stress single isotope SPECT imaging with pharmacologic stress and gated SPECT imaging. INDICATION: Chest pain. PROCEDURE IN DETAIL: Pharmacologic stress testing was performed with regadenoson per protocol. The heart rate was 70 beats per minute at rest and chrissy to 83 beats per minute during the regadenoson infusion. The resting blood pressure was 129/57 and increased to 131/55, which was in a normal response. The resting electrocardiogram showed normal sinus rhythm. There were no ST-segment changes suggestive of myocardial ischemia. There were no cardiac arrhythmias noted. Myocardial perfusion imaging was performed at rest following injection of 10.8 mCi of tetrofosmin. At peak pharmacologic effects, the patient was injected with 31.9 mCi of tetrofosmin. Gated post-stress tomographic was performed. FINDINGS: The overall quality of the study was good. Left ventricular cavity appears normal at both rest and stress. SPECT images demonstrate normal myocardial perfusion. Gated SPECT imaging reveals an ejection fraction greater than 70% with normal myocardial thickening and wall motion. IMPRESSION: Normal myocardial perfusion imaging. The overall left ventricular systolic function was normal without regional wall motion abnormalities. DO LU Oliva/OLAFL /[id number]
== END 2020-04-28 17:47 | disposition home or self-care (01) ==
LOC: ER 19:23 → ERHOLD 04-26 00:23 → MED/SURG3 04-26 07:33
PROVIDERS: ADMIT Internal Medicine; ATTEND Internal Medicine
DX: N17.9 Acute kidney failure, unspecified (principal); N39.0 Urinary tract infection, site not specified; F32.9 Major depressive disorder, single episode, unspecified; I10 Essential (primary) hypertension; M06.9 Rheumatoid arthritis, unspecified; E78.5 Hyperlipidemia, unspecified; Z11.59 Encounter for screening for other viral diseases
CPT/HCPCS: 36415 ×3; 71260; 78452; 80053 ×2; 81001; 82550 ×2; 82553 ×2; 82948; 83880; 84484 ×2; 85025 ×2; 85651; 87635; 93005; 93017; 93306; 97161; A9502; G0378 ×3; J0696 ×3; J2785; J2930; Q9967

== ENCOUNTER 2024-01-15 19:08 | Emergency (ER) | payer MEDICARE ==
[~2024-01-15] VITALS: Ht 149.9 cm; Wt 59.9 kg
[~2024-01-15 19:08] MED LIST: BACTRIM DS TAB1 EACH PO; CITALOPRAM HBR20 MG PO; HYDROCHLOROTHIA25 MG PO; KEFLEX500 MG PO; LISINOPRIL10 MG PO; PEPCID20 MG PO; SULFASALAZINE500 MG PO; TRICOR48 MG PO; VITAMIN B-121000 MCG PO; VITAMIN D350 MCG PO
[2024-01-15 19:57] LABS: BASOPHILS % 0.3 % (0.0-1.0); EOSINOPHILS % 0.5 % (0.0-6.0); HEMOGLOBIN 11.6 g/dL (12.0-16.0); LYMPHOCYTES # (AUTO) 1.1 (1.0-3.2); LYMPHOCYTES % 16.5 % (18.0-39.1); MEAN CORPUSCULAR HEMOGLOBIN 31.4 pg (28-32); MEAN CORPUSCULAR HGB CONC 31.4 g/dL (31-35); MEAN CORPUSCULAR VOLUME 100.3 fL (81-99); MONOCYTES # (AUTO) 0.9 (0.2-0.8); MONOCYTES % 14.2 % (4.4-11.3); NEUTROPHILS # (AUTO) 4.4 (2.1-6.9); NEUTROPHILS % 68.2 % (38.7-80.0); PLATELET COUNT 262 x10e3/uL (140-360); RED BLOOD COUNT 3.69 x10e6/uL (3.6-5.1); RED CELL DISTRIBUTION WIDTH 13.8 % (11.7-14.4)
[2024-01-15] MEDS: ACETAMINOPHEN 325 MG TAB PO STA (19:58)
[2024-01-15] MEDS: SODIUM CHLORIDE 0.9% 1000ML 1,000 ML IV STA (19:58)
[2024-01-15 20:18] LABS: ALANINE AMINOTRANSFERASE 10 IU/L (0-55); ALBUMIN 3.2 g/dL (3.5-5.0); ALBUMIN/GLOBULIN RATIO 0.7 (0.8-2.0); ALKALINE PHOSPHATASE 43 IU/L (40-150); BILIRUBIN,TOTAL 0.4 mg/dL (0.2-1.2); BLOOD UREA NITROGEN 8 mg/dL (7-26); BUN/CREATININE RATIO 9 (6-25); CALCIUM 8.9 mg/dL (8.4-10.2); CARBON DIOXIDE 22 mmol/L (22-29); CHLORIDE 103 mmol/L (98-107); CREATINE KINASE 108 IU/L (29-168); CREATININE, SERUM 0.86 mg/dL (0.57-1.11); EST GLOMERULAR FILTRATION RATE 69 ML/MIN (>=60); GLUCOSE 100 mg/dL (74-118); SODIUM 135 mmol/L (136-145); STREPTOCOCCUS GRP A ANTIGEN NEGATIVE (NEGATIVE); TOTAL PROTEIN 7.8 g/dL (6.5-8.1)
[2024-01-15 20:24] LABS: TROPONIN I < 0.001 ng/mL (0-0.300)
[2024-01-15 20:36] LABS: RESPIRATORY SYNC. VIRUS NEGATIVE (NEGATIVE)
[2024-01-15 20:37] LABS: INFLUENZAE A&B ANTIGEN (RAPID) POSITIVE FLU A (NEGATIVE)
[2024-01-15 20:44] LABS: B-TYPE NATRIURETIC PEPTIDE2 45.1 pg/mL (0-100)
[2024-01-15] MEDS ORDERED: VENTOLIN HFA18 GM INH (21:00)
[2024-01-15] MEDS ORDERED: TAMIFLU75 MG PO (21:00)
[2024-01-15] MEDS ORDERED: PREDNISONE20 MG PO (21:00)
[2024-01-15 21:11] VITALS: BP 122/46; PULSE 72; RESP 18; TEMP 99.9; O2SAT 96
== END 2024-01-15 21:11 | disposition home or self-care (01) ==
LOC: ER 19:15
DX: R50.9 Fever, unspecified (principal); J10.1 Influenza due to other identified influenza virus with other respiratory manifestations; I10 Essential (primary) hypertension; E78.5 Hyperlipidemia, unspecified; M06.9 Rheumatoid arthritis, unspecified; F41.9 Anxiety disorder, unspecified; Z11.52 Encounter for screening for COVID-19
CPT/HCPCS: 36415; 71045; 80053; 82550; 83518; 83605; 83690; 83880; 84484; 85025; 87040; 87070; 87400; 87420; 93005; 99284; J2543; J7030; U0002

== ENCOUNTER 2024-09-20 18:39 | Emergency (ER) | payer MEDICARE ==
[~2024-09-20] VITALS: Ht 149.9 cm; Wt 59.9 kg
[~2024-09-20 18:39] MED LIST changes: +PREDNISONE20 MG PO; +TAMIFLU75 MG PO; +VENTOLIN HFA18 GM INH
[2024-09-20 19:20] VITALS: TEMP 98.7
[2024-09-20] MEDS: ACETAMINOPHEN 325 MG TAB PO ONE (21:14)
[2024-09-20 22:25] VITALS: PULSE 76; RESP 16
[2024-09-20 22:40] VITALS: BP 134/74; O2SAT 100
== END 2024-09-20 22:30 | disposition home or self-care (01) ==
LOC: ER 19:15
DX: S00.03XA Contusion of scalp, initial encounter (principal); R51.9 Headache, unspecified; W01.0XXA Fall on same level from slipping, tripping and stumbling without subsequent striking against object, initial encounter; Y93.01 Activity, walking, marching and hiking; Y92.89 Other specified places as the place of occurrence of the external cause; I10 Essential (primary) hypertension; E78.5 Hyperlipidemia, unspecified; M06.9 Rheumatoid arthritis, unspecified; F41.9 Anxiety disorder, unspecified
CPT/HCPCS: 70450; 72125; 99283